=== PATIENT | female | born 1935 | race Caucasian/White ===

== ENCOUNTER 2018-05-04 10:26 | Inpatient (IN) ==
[2018-05-04] MEDS ORDERED: IOPAMIDOL 100 ML BOTTLE IV ONE (10:27)
[2018-05-04] MEDS ORDERED: LACTATED RINGERS 1,000 ML IV ONE ×2 (10:34→16:58)
[2018-05-04] MEDS ORDERED: 0.9 % SODIUM CHLORIDE 1,000 ML IV ONE ×2 (10:39→10:40)
[2018-05-04] MEDS ORDERED: ACETAMINOPHEN 1,000 MG/100 ML BOTTLE IV ONE (10:43)
--- NOTE | 2018-05-04 11:08 | XRay Report ---
CLINICAL INFORMATION: FEVER COMPARISON: 09/19/2016 FINDINGS: The heart is accentuated by suboptimal inspiratory result, portable technique and reversed lordotic positioning. It is within normal limits. Mediastinum and pulmonary vessels are normal. Lungs are clear. No effusion IMPRESSION: Negative Interpreted and Authenticated by: Christopher Adame 05/04/18
[2018-05-04 11:14] LABS: Basophils # (Auto) 0.1 K/mcL (0.0-0.3); Basophils % (Auto) 0.4 % (0.0-2.0); Eosinophils # (Auto) 0.1 K/mcL (0.0-0.7); Eosinophils % (Auto) 0.9 % (0.0-7.0); Granulocytes % (Auto) 81.7 % (38.0-78.0); Lymphocytes # (Auto) 1.5 K/mcL (1.5-4.8); Lymphocytes % (Auto) 11.7 % (15.5-49.0); Mean Cell Volume 100.2 fL (80.0-100.0); Mean Corpuscular HGB Conc 32.9 g/dL (31.0-36.0); Mean Corpuscular Hemoglobin 32.9 pg (26.0-34.0); Monocytes # (Auto) 0.7 K/mcL (0.1-0.9); Monocytes % (Auto) 5.3 % (1.0-12.0); Platelet Count 254 K/mcL (140-440); RBC 4.12 M/mcL (4.00-5.20); Red Cell Distribution Width 14.9 % (11.5-14.5)
[2018-05-04 11:33] LABS: ALT/SGPT 17 U/l (0-40); Albumin 3.7 gm/dL (3.2-5.2); Albumin/Globulin Ratio 1.3 (1.0-2.3); Alkaline Phosphatase 103 U/L (39-117); Blood Urea Nitrogen 17 mg/dl (8-23)
[2018-05-04] MEDS ORDERED: AZITHROMYCIN 500 MG in DEXTROSE 5% IN WATER 250 ML IV ONE (11:42)
--- NOTE | 2018-05-04 11:53 | Emergency Department Note ---
Fever HPI - General Chief Complaint: Fever Stated Complaint: Fever 104 Time Seen by Provider: 05/04/18 10:33 Source: EMS Mode of arrival: EMS Limitations: no limitations - History of Present Illness HPI Narrative: 82-year-old female presents with week long history of cold symptoms. She has had a cough with green sputum for the last week. Fevers of 102-103 at home the last few days. Has had chills all week. Does have some mild shortness of breath but states that is chronic due to COPD and asthma. She does have a nebulizer machine that she uses with some relief. She is not on any home oxygen. No cough or sore throat. No ear pain. No sinus congestion. She does feel generally weak. Denies abdominal pain. No dysuria or frequency. Family reports they called EMS this morning because she has been confused since she woke up this morning and the confusion started just today. They also noticed her high fever this morning. Patient does respond to yes/no questions but does not say a whole lot and is a poor historian with some obvious confusion. Associated symptoms: Reports: chills, myalgias, cough, shortness of breath, night sweats. Denies: headache, rhinorrhea, nasal congestion, sore throat, chest pain, abdominal pain, nausea, vomiting, diarrhea, dysuria, rash Improves with: nothing Worsens with: nothing Treatments prior to arrival fever: none - Related Data Home Medications Medication Instructions Recorded Confirmed Budesonide/Formoterol Fumarate 2 puff IH BID 05/04/18 05/04/18 [Symbicort 160-4.5 Mcg Inhaler] Fluticasone Hfa 220Mcg [Flovent 2 puff INH BID 05/04/18 05/04/18 Hfa 220Mcg] Furosemide [Lasix] 20 mg PO DAILY 05/04/18 05/04/18 Levothyroxine Sodium [Levoxyl] 50 mcg PO DAILY 05/04/18 05/04/18 Metoprolol Tartrate [Lopressor] 25 mg PO BID 05/04/18 05/04/18 Montelukast Sodium [Singulair] 10 mg PO DAILY 05/04/18 05/04/18 Phenytoin [Dilantin] 150 mg CHEWED BID 05/04/18 05/04/18 predniSONE [Prednisone] 10 mg PO [facility] 05/04/18 05/04/18 Allergies Allergy/AdvReac Type Severity Reaction Status Date / Time Penicillins Allergy Severe Unknown Verified 03/12/18 09:00 aspirin Allergy Unknown Nausea, Verified 03/12/18 09:00 vomiting baclofen Allergy Unknown Unknown Verified 03/12/18 09:00 Cyclobenzaprine Allergy Unknown Unknown Verified 03/12/18 09:00 moxifloxacin Allergy Unknown Pain in Verified 03/12/18 09:00 arm and chest Nitrous Oxide Allergy Unknown Unknown Verified 03/12/18 09:00 Review of Systems All systems ED: reviewed and negative except as stated. Fever PMH - Past Medical History [facility] Narrative: Medical History (Last Updated 08/22/17 @ 10:33 by Sin Deleon PA-C) Paroxysmal atrial flutter (Chronic) Seizure disorder (Chronic) Hepatic disease (Chronic) Tremor (Chronic) Unspecified hypothyroidism (Chronic) Seizure (Chronic) Osteopenia (Chronic) Generalized muscle weakness (Inactive) Prolapsed bladder (Chronic) Chronic left hip pain (Chronic) History of tobacco use (Chronic) Vitamin B 12 deficiency (Chronic) Urinary incontinence (Inactive) Restless leg syndrome (Chronic) Peripheral neuropathy (Chronic) Osteoarthritis (Chronic) Kidney cyst, acquired (Chronic) Elevated blood pressure reading without diagnosis of hypertension (Chronic) Edema (Chronic) 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) Chronic pain (Inactive) Chronic kidney disease, stage III (moderate) (Chronic) Hypothyroidism (acquired) (Chronic) Osteoporosis (Chronic) Insomnia (Chronic) Asthma (Chronic) Anxiety (Inactive) Compression fracture (Resolved) Congestive heart failure (Acute) Atrial flutter (Resolved) Cellulitis (Resolved) Lipoma (Resolved) Malaise and fatigue (Resolved) Nocturia (Resolved) Other symptoms involving urinary system (Resolved) Productive cough (Resolved) Rib injury (Resolved) Sunstroke (Resolved) Sweating (Resolved) Visual disturbances (Resolved) Past Surgical History H/O colonoscopy (Chronic ~02/2004) History of cataract surgery (Chronic) History of cholecystectomy (Chronic) History of nasal surgery (Chronic) History of sinus surgery (Chronic) History of thumb surgery (Chronic) History of tonsillectomy and adenoidectomy (Chronic) History of tubal ligation (Chronic) Medical history: Reports: arthritis, asthma, atrial fibrillation (and flutter), CHF, osteoporosis, seizures (denies seizure precip fall "I was reaching for my duncan ins and fell on my couch, it has a wooden edge), thyroid disease - Social History smoking status: Former smoker Alcohol use: Reports: None Drug use: Reports: none Physical Exam Limitations: no limitations General appearance: alert (Alert but very poor historian with confusion at times.) Head: atraumatic, normocephalic, normal inspection Eye: Present: normal appearance. Absent: conjunctival injection ENT: normal exam, normal oropharynx, mucous membranes moist, TM's normal bilaterally, normal external ear exam Neck: Present: normal inspection, full ROM, trachea midline. Absent: tenderness Chest: Present: normal inspection, symmetric chest wall rise Respiratory: Present: normal lung sounds bilaterally. Absent: respiratory distress, rales/crackles, accessory muscle use Cardiovascular: Present: tachycardia, normal heart sounds Abdominal: Present: soft, normal bowel sounds. Absent: distention, tenderness, guarding Extremities: Present: normal inspection. Absent: pedal edema Neurological: Present: alert. Absent: oriented X3 (Oriented to person but not place or time) Psychiatric: Present: normal affect, normal mood Skin: Present: warm (Hot), dry, intact, normal color Course Course Narrative: At 1150 I did speak with the hospitalist. 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 Result diagrams: 05/04/18 10:43 05/04/18 10:43 Lab Results 05/04/18 05/04/18 05/04/18 Range/Units 10:43 10:43 10:43 WBC 12.8 H (4.5-11.0) K/mcL RBC 4.12 (4.00-5.20) M/mcL Hgb 13.6 (12.0-15.0) g/dL Hct 41.3 (36.0-48.0) % MCV 100.2 H (80.0-100.0) fL MCH 32.9 (26.0-34.0) pg MCHC 32.9 (31.0-36.0) g/dL RDW 14.9 H (11.5-14.5) % Plt Count 254 (140-440) K/mcL MPV 9.1 (7.4-10.4) fL Gran % 81.7 H (38.0-78.0) % Lymph % (Auto) 11.7 L (15.5-49.0) % Bow[place] % (Auto) 5.3 (1.0-12.0) % Eos % (Auto) 0.9 (0.0-7.0) % Baso % (Auto) 0.4 (0.0-2.0) % Gran # 10.5 H (1.8-8.0) K/mcL Lymph # (Auto) 1.5 (1.5-4.8) K/mcL Bowman # (Auto) 0.7 (0.1-0.9) K/mcL Eos # (Auto) 0.1 (0.0-0.7) K/mcL Baso # (Auto) 0.1 (0.0-0.3) K/mcL VBG Lactic Acid 1.7 (0.5-2.2) mmol/L Sodium 142 (133-145) mmol/L Potassium 4.4 (3.3-5.1) mmol/L Chloride 104 (96-108) mmol/L Carbon Dioxide 25 (22-30) mmol/L Anion Gap 13.0 (8-16) BUN 17 (8-23) mg/dl Creatinine 1.0 (0.6-1.1) mg/dl GFR Calculation 53 Glucose 151 H (70-105) mg/dL Calcium 8.7 (8.6-10.4) mg/dl Total Bilirubin 0.4 (0.0-1.0) mg/dL AST 29 (0-37) U/l ALT 17 (0-40) U/l Alkaline Phosphatase 103 (39-117) U/L Total Protein 6.5 (5.9-8.4) gm/dL Albumin 3.7 (3.2-5.2) gm/dL Globulin 2.8 (2.2-3.7) gm/dL Albumin/Globulin Ratio 1.3 (1.0-2.3) Procalcitonin (<0.10) ng/mL Urine Color Urine Appearance Urine pH (5.0-9.0) Ur Specific [place] (1.000-1.035) Urine Protein (NEG) mg/dL Urine Glucose (UA) (NEG) mg/dL Urine Ketones (NEG) mg/dL Urine Occult Blood (<0.03) mg/dL Urine Nitrate (NEG) Urine Bilirubin (NEG) mg/dL Urine Urobilinogen (NEG) mg/dL Ur Leukocyte Esterase (NEG) /uL Ur Culture Indicated? Phenytoin ug/mL Phenytoin Dose Pheny Last Dose Time 05/04/18 05/04/18 05/04/18 Range/Units 10:43 10:43 11:00 WBC (4.5-11.0) K/mcL RBC (4.00-5.20) M/mcL Hgb (12.0-15.0) g/dL Hct (36.0-48.0) % MCV (80.0-100.0) fL MCH (26.0-34.0) pg MCHC (31.0-36.0) g/dL RDW (11.5-14.5) % Plt Count (140-440) K/mcL MPV (7.4-10.4) fL Gran % (38.0-78.0) % Lymph % (Auto) (15.5-49.0) % Bowman % (Auto) (1.0-12.0) % Eos % (Auto) (0.0-7.0) % Baso % (Auto) (0.0-2.0) % Gran # (1.8-8.0) K/mcL Lymph # (Auto) (1.5-4.8) K/mcL Bowman # (Auto) (0.1-0.9) K/mcL Eos # (Auto) (0.0-0.7) K/mcL Baso # (Auto) (0.0-0.3) K/mcL VBG Lactic Acid (0.5-2.2) mmol/L Sodium (133-145) mmol/L Potassium (3.3-5.1) mmol/L Chloride (96-108) mmol/L Carbon Dioxide (22-30) mmol/L Anion Gap (8-16) BUN (8-23) mg/dl Creatinine (0.6-1.1) mg/dl GFR Calculation Glucose (70-105) mg/dL Calcium (8.6-10.4) mg/dl Total Bilirubin (0.0-1.0) mg/dL AST (0-37) U/l ALT (0-40) U/l Alkaline Phosphatase (39-117) U/L Total Protein (5.9-8.4) gm/dL Albumin (3.2-5.2) gm/dL Globulin (2.2-3.7) gm/dL Albumin/Globulin Ratio (1.0-2.3) Procalcitonin 0.57 (<0.10) ng/mL Urine Color Yellow Urine Appearance Clear Urine pH 8.0 (5.0-9.0) Ur Specific [place] 1.015 (1.000-1.035) Urine Protein Neg (NEG) mg/dL Urine Glucose (UA) Negative (NEG) mg/dL Urine Ketones Neg (NEG) mg/dL Urine Occult Blood Neg (<0.03) mg/dL Urine Nitrate Neg (NEG) Urine Bilirubin Neg (NEG) mg/dL Urine Urobilinogen Neg (NEG) mg/dL Ur Leukocyte Esterase Neg (NEG) /uL Ur Culture Indicated? No Phenytoin 12.7 ug/mL Phenytoin Dose Not Reportable Pheny Last Dose Time Not Reportable - Radiology Data Radiology results reviewed: Yes I reviewed the patient's radiology results. Disposition Pt seen by SHEEP CLIPPER/PA only: No Clinical Impression: Pneumonia, Hypoxia, Fever Disposition: Xfer As Inpt ([facility]) Condition: Fair Referrals: Sin Deleon PA-C [Primary Care Provider] - Time of Disposition: 14:02
[2018-05-04 12:11] LABS: Appearance,Urine CLEAR; Bilirubin,Urine NEG (NEG); Color,Urine YELLOW; Glucose,Urine (UA) NEGATIVE (NEG); Leukocyte Esterase,Urine NEG /uL (NEG); Protein,Urine NEG (NEG); Specific Gravity,Urine 1.015 (1.000-1.035); Urine Blood NEG mg/dL (<0.03); Urobilinogen,Urine NEG (NEG)
[2018-05-04] MEDS ORDERED: diphenhydrAMINE 50 MG/ML VIAL IV ONE (12:18)
[2018-05-04] MEDS ORDERED: methylPREDNISolone SOD SUCC 125 MG/2 ML VIAL IV ONE (12:18)
--- NOTE | 2018-05-04 13:54 | Cat Scan Report ---
CLINICAL INFORMATION: Fever hypoxia and confusion COMPARISON: Chest CT 03/16/[address] 07/24/2007 TECHNIQUE: Enteric contrast was utilized. 80 cc of Isovue-300 were injected intravenously, and 50 seconds later 2.5 mm helical slices were obtained from the lung apices through the subtrochanteric regions of the femurs. Following reconstruction, 2.5 mm sagittal, coronal and axial reformatted images were processed and reviewed at multiple windows and levels. 7 mm MIP reconstructions were obtained through the lungs to optimize nodule detection.The exam was performed using radiation dose optimization techniques including, but not limited to, automated exposure control, adjustment of the mA and/or kV according to patient size and use of iterative reconstruction technique. FINDINGS: Pulmonary parenchymal windows show moderate patchy mixed interstitial/alveolar infiltrates in both posterior lower lobes which are new from the previous CT. Lung volumes are elevated and there are chronic bronchitis and scattered bullae in the upper lobes compatible mild centrilobular emphysema. 2.5 L nodule, in the right lung apex (image 23) with surrounding inflammation should represent a small granuloma. There is also a small isolated subsegmental bronchus in the posterior segment right upper lobe which demonstrates wall thickening and dilatation suggesting tubular bronchiectasis. There are no effusions. Mediastinal windows show mild wall thickening of the distal esophagus at the GE junction with mild dilatation of the thoracic esophagus. Heart is mildly enlarged with only minimal plaque seen in the visualized coronary arteries. There are no abnormally enlarged lymph nodes in the mediastinal, hilar or axillary regions. The pulmonary arteries and thoracic aorta are normal in contour and caliber. Thyroid is grossly normal Images through the abdomen show the gallbladder is surgically absent. Intrahepatic and common bile ducts are normal caliber: CBD is 6 mm. The liver, pancreas, both kidneys, adrenal glands, and aorta, including aortic branches, are normal size configuration and attenuation without focal lesion. 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 The stomach, small/large bowel and appendix are unremarkable. Images through the pelvis show normal postmenopausal uterus with tiny calcified subserosal granulomas throughout the uterus. Ovaries are atrophic and not visualized. Bone windows show no abnormality. IMPRESSION: Moderate sized infiltrates in both posterior lower lobes. Aspiration is suspected. Mild wall thickening of the distal esophagus at the GE junction with dilatation of the thoracic esophagus. This would predispose to aspiration - consider esophagram Mild centrilobular emphysema changes. Tiny focus of tubular bronchiectasis within a subsegmental posterior segment right upper lobe noted. Splenectomy changes Multiple small calcified fibroids in the peripheral subserosal uterus 9 cm region of vague increased attenuation central mesentery is unchanged from the remote study. It is likely insignificant may represent fibrosis. In the acute situation, this finding can indicate panniculitis. Interpreted and Authenticated by: Christopher Adame 05/04/18
--- NOTE | 2018-05-04 14:36 | Internal Med History&Physical ---
Addendum entered and electronically signed by Aries Dhaliwal 05/04/18 15:01: A/P 1. Pneumonia- most likely d/t history of COPD, prior pneumonia requiring hospitalization, fever and CT showing bilateral lower lobe infiltrates. Will admit and treat with ABx's and supportive treatments 2. Sepsis- less likely d/t maintained BP and negative lactic acid 3. FUO Original Note: Medical - H&P: HPI Patient information: Note initiated : 05/04/18 at 2:35 pm Service Date, if different from initiated Date: [] Patient: Nidia Lopez a 82 y/o F admitted on for Fever 104. Chief Complaint: [] Chief complaint: Confusion starting this morninr History of present illness: Ms. Lopez is a 82 year old F who presented to the ED with altered mental status and a fever of 104. Pt's states that this morning at around 8AM, patient wasn't responding to questions and was acting like "she was somewhere else". Pt's called their daughter who also said that patient wasn't responding appropriately to questions. She has had a cold and a cough for the last week and was producing green sputum. Pt has a history of COPD and asthma and has previously been to the hospital with pneumonia several years ago. - Constitutional Constitutional: Present: chills (always cold), fever(s), lethargy (was given benadryl before CT scan). Absent: night sweats - EENT Eyes: Present: other (watery eyes). Absent: change in vision Nose, mouth and throat: Present: sore throat. Absent: headache(s) - Cardiovascular Cardiovascular: Absent: chest pain, leg edema, lightheadedness, palpatations - Respiratory Respiratory: Present: cough, change in phlegm color (green), other ("lung pain when bending forward"). Absent: hemoptysis - Gastrointestinal Gastrointestinal: Present: constipation. Absent: diarrhea, nausea, vomiting - Genitourinary Genitourinary: Absent: difficulty urinating, difficulty voiding - Musculoskeletal Musculoskeletal: Present: arthralgias (bilat knee pain), muscle weakness - Integumentary Integumentary: Absent: rash, skin ulcer - Neurological Neurological: Present: confusion. Absent: dizziness, numbness, syncope, tingling Medical - H&P: PMH Medical history: COPD Asthma Hypothyroidism Pneumonia Seizures Surgical history: Cholecystectomy Facial sinus surgery tonsillectomy Medical - H&P: Meds Home Medications Medication Instructions Recorded Confirmed Type Budesonide/Formoterol Fumarate 2 puff IH BID 05/04/18 05/04/18 History [Symbicort 160-4.5 Mcg Inhaler] Fluticasone Hfa 220Mcg [Flovent 2 puff INH BID 05/04/18 05/04/18 History Hfa 220Mcg] Furosemide [Lasix] 20 mg PO DAILY 05/04/18 05/04/18 History Levothyroxine Sodium [Levoxyl] 50 mcg PO DAILY 05/04/18 05/04/18 History Metoprolol Tartrate [Lopressor] 25 mg PO BID 05/04/18 05/04/18 History Montelukast Sodium [Singulair] 10 mg PO DAILY 05/04/18 05/04/18 History Phenytoin [Dilantin] 150 mg CHEWED BID 05/04/18 05/04/18 History predniSONE [Prednisone] 10 mg PO QAC 05/04/18 05/04/18 History Allergies Allergy/AdvReac Type Severity Reaction Status Date / Time Penicillins Allergy Severe Unknown Verified 03/12/18 09:00 aspirin Allergy Unknown Nausea, Verified 03/12/18 09:00 vomiting baclofen Allergy Unknown Unknown Verified 03/12/18 09:00 Cyclobenzaprine Allergy Unknown Unknown Verified 03/12/18 09:00 moxifloxacin Allergy Unknown Pain in Verified 03/12/18 09:00 arm and chest Nitrous Oxide Allergy Unknown Unknown Verified 03/12/18 09:00 Medical - H&P: Exam - Constitutional Vitals: Temp Pulse Resp BP Pulse Ox 100.9 F H 115 H 24 H 112/73 95 05/04/18 13:11 05/04/18 12:45 05/04/18 13:11 05/04/18 13:10 05/04/18 12:45 General appearance: no acute distress - Head Head exam: Present: atraumatic - Eye Eye exam: Present: normal appearance, PERRL - Expanded Eye Exam Eyelids: bilateral: normal inspection - ENT ENT exam: Present: mucous membranes moist - Neck Neck exam: Present: normal inspection. Absent: lymphadenopathy, tenderness - Expanded Neck Exam Neck exam: Absent: carotid bruit - Respiratory Respiratory exam: Present: decreased breath sounds, rhonchi, wheezes. Absent: respiratory distress - Cardiovascular Cardiovascular exam: Present: RRR. Absent: gallop, rubs, systolic murmur - Extremities Exam Extremities exam: Present: normal capillary refill, Foot pink and warm. Absent : pedal edema, tenderness - Skin Skin exam: Present: dry, warm Medical - H&P: Reslt - Labs CBC & Chem 7: 05/04/18 10:43 05/04/18 10:43 Labs: Short CBC 05/04/18 Range/Units 10:43 WBC 12.8 H (4.5-11.0) K/mcL Hgb 13.6 (12.0-15.0) g/dL Hct 41.3 (36.0-48.0) % Plt Count 254 (140-440) K/mcL BMP 05/04/18 10:43 Sodium 142 Potassium 4.4 Chloride 104 Carbon Dioxide 25 BUN 17 Creatinine 1.0 Glucose 151 H Calcium 8.7 Liver Function 05/04/18 Range/Units 10:43 Total Bilirubin 0.4 (0.0-1.0) mg/dL AST 29 (0-37) U/l ALT 17 (0-40) U/l Alkaline Phosphatase 103 (39-117) U/L Albumin 3.7 (3.2-5.2) gm/dL Urine 05/04/18 Range/Units 11:00 Urine Color Yellow Urine Appearance Clear Urine pH 8.0 (5.0-9.0) Ur Specific [place] 1.015 (1.000-1.035) Urine Protein Neg (NEG) mg/dL Urine Glucose (UA) Negative (NEG) mg/dL
--- NOTE | 2018-05-04 15:52 | Internal Med History&Physical ---
Medical - H&P: HPI Patient information: Note initiated : 05/04/18 at 3:44 pm Service Date, if different from initiated Date: [] Patient: Nidia Lopez a 82 y/o F admitted on for Fever 104. Chief Complaint: [] History of present illness: Ms. Lopez is a 82 year old F with h/o copd, presents to the ER brought in by family for not feeling well, confusion x 1 day On my evaluation patient was drowsy had received Benadryl before the CT scan and therefore was unable to provide me with any history. Most of the history taken from the patient's The patient has been sick for the last 1 week with cough chills malaise some shortness of breath, runny nose watery eyes. The patient condition has progressively gotten worse according to her . She has had poor appetite and early satiety. The patient this morning was noticed to be confused, and feeling very cold. The noted that she was not talking coherently and called his daughter who then brought the patient to the emergency room. According to the family the patient had no other complaints. They denied any chest pain, no headache changes in vision based on the history there was no suggestion of photophobia or phonophobia. There was no nausea vomiting no diarrhea or constipation reported. In the emergency room the patient was febrile on presentation with a temperature of 102.9, maximum temperature recorded in the ER is 105. Heart rate has been elevated between 100-115. Blood pressure stable at 134/73, patient was tachypneic with a rate of 28, she was a 97% with 4 L of oxygen. Chest x-ray was interpreted as negative, EKG is sinus rhythm, first-degree heart block, old inferior anterior wall [place] Labs showed elevated WBC count at 12.8, platelets 254, hemoglobin 13.6. UA was negative, lactic acid 1.7, pro calcitonin 0.57, sodium 142 potassium 4.4 bicarbonate 25 creatinine 1.[address] abdomen and pelvis showed bilateral pneumonia, emphysema and a dilated esophagus with thickened distal part. On talking with the family the patient had no difficulty in swallowing, and the patient did not have any cough while eating food. By the time when I evaluated the patient the patient's blood pressure had dropped down and was not 90 systolic. Map more than 65. Patient had received azithromycin in the ER. ROS unobtainable: due to mental status Medical - H&P: [facility] Medical history: Medical History (Last Updated 08/22/17 @ 10:33 by Sin Deleon PA-C) Paroxysmal atrial flutter (Chronic) Seizure disorder (Chronic) Hepatic disease (Chronic) Tremor (Chronic) Unspecified hypothyroidism (Chronic) Seizure (Chronic) Osteopenia (Chronic) Generalized muscle weakness (Inactive) Prolapsed bladder (Chronic) Chronic left hip pain (Chronic) History of tobacco use (Chronic) Vitamin B 12 deficiency (Chronic) Urinary incontinence (Inactive) Restless leg syndrome (Chronic) Peripheral neuropathy (Chronic) Osteoarthritis (Chronic) Kidney cyst, acquired (Chronic) Elevated blood pressure reading without diagnosis of hypertension (Chronic) Edema (Chronic) 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) Chronic pain (Inactive) Chronic kidney disease, stage III (moderate) (Chronic) Hypothyroidism (acquired) (Chronic) Osteoporosis (Chronic) Insomnia (Chronic) Asthma (Chronic) Anxiety (Inactive) Compression fracture (Resolved) Congestive heart failure (Acute) Atrial flutter (Resolved) Cellulitis (Resolved) Lipoma (Resolved) Malaise and fatigue (Resolved) Nocturia (Resolved) Other symptoms involving urinary system (Resolved) Productive cough (Resolved) Rib injury (Resolved) Sunstroke (Resolved) Sweating (Resolved) Visual disturbances (Resolved) Surgical history: Past Surgical History H/O colonoscopy (Chronic ~02/2004) History of cataract surgery (Chronic) History of cholecystectomy (Chronic) History of nasal surgery (Chronic) History of sinus surgery (Chronic) History of thumb surgery (Chronic) History of tonsillectomy and adenoidectomy (Chronic) History of tubal ligation (Chronic) Pertinent family history: Family History Mother Cancer Hypertension, essential Heart attack Migraines Diabetes Father Asthma Pneumonia Sister Diabetes Cancer Daughter Cancer Sister Malignant neoplasm of uterus Other Benign neoplasm of brain Colon cancer Malignant neoplasm of kidney Melanoma Medical - H&P: Meds Home Medications Medication Instructions Recorded Confirmed Type Budesonide/Formoterol Fumarate 2 puff IH BID 05/04/18 05/04/18 History [Symbicort 160-4.5 Mcg Inhaler] Fluticasone Hfa 220Mcg [Flovent 2 puff INH BID 05/04/18 05/04/18 History Hfa 220Mcg] Furosemide [Lasix] 20 mg PO DAILY 05/04/18 05/04/18 History Levothyroxine Sodium [Levoxyl] 50 mcg PO DAILY 05/04/18 05/04/18 History Metoprolol Tartrate [Lopressor] 25 mg PO BID 05/04/18 05/04/18 History Montelukast Sodium [Singulair] 10 mg PO DAILY 05/04/18 05/04/18 History Phenytoin [Dilantin] 150 mg CHEWED BID 05/04/18 05/04/18 History predniSONE [Prednisone] 10 mg PO [facility] 05/04/18 05/04/18 History Allergies Allergy/AdvReac Type Severity Reaction Status Date / Time Penicillins Allergy Severe Unknown Verified 03/12/18 09:00 aspirin Allergy Unknown Nausea, Verified 03/12/18 09:00 vomiting baclofen Allergy Unknown Unknown Verified 03/12/18 09:00 Cyclobenzaprine Allergy Unknown Unknown Verified 03/12/18 09:00 moxifloxacin Allergy Unknown Pain in Verified 03/12/18 09:00 arm and chest Nitrous Oxide Allergy Unknown Unknown Verified 03/12/18 09:00 Medical - H&P: Exam - Constitutional Vitals: Temp Pulse Resp BP Pulse Ox 100.2 F H 80 17 107/70 98 05/04/18 15:32 05/04/18 15:32 05/04/18 15:32 05/04/18 15:30 05/04/18 15:32 General appearance: no acute distress Exam: GENERAL: The patient is a well-developed, well-nourished in no apparent distress. Is drowsy and oriented x1 . VITAL SIGNS: Reviewed and as noted elsewhere. HEENT: Head is normocephalic and atraumatic. Extraocular muscles are intact. Pupils are equal, round, and reactive to light. Nares appeared normal. Mouth appears any without lesions. Mucous membranes are moist. NECK: Normal to inspection, Supple, No lymphadenopathy or thyromegaly. LUNGS: Air entry equal on both sides decreased air entry bilaterally, no wheezing, crackles or rhonchi noted. No accessory muscles of respiration. HEART: Regular tachycardic rate and rhythm normal, S1 and S2 heard, no Gallop, S3 or Rub Noted, No Gross murmur heard. ABDOMEN: Soft, nontender, and nondistended. Positive bowel sounds. No hepatosplenomegaly was noted. EXTREMITIES: No cyanosis, clubbing, rash, lesions or edema. NEUROLOGIC: Cranial nerves II through XII are grossly intact. moving all extremity PSYCHIATRIC: drowsy SKIN: No ulceration or wounds noted, No jaundice, No rash noted. Medical - H&P: Reslt - Labs CBC & Chem 7: 05/04/18 10:43 05/04/18 10:43 Labs: Short CBC 05/04/18 Range/Units 10:43 WBC 12.8 H (4.5-11.0) K/mcL Hgb 13.6 (12.0-15.0) g/dL Hct 41.3 (36.0-48.0) % Plt Count 254 (140-440) K/mcL BMP 05/04/18 10:43 Sodium 142 Potassium 4.4 Chloride 104 Carbon Dioxide 25 BUN 17 Creatinine 1.0 Glucose 151 H Calcium 8.7 Liver Function 05/04/18 Range/Units 10:43 Total Bilirubin 0.4 (0.0-1.0) mg/dL AST 29 (0-37) U/l ALT 17 (0-40) U/l Alkaline Phosphatase 103 (39-117) U/L Albumin 3.7 (3.2-5.2) gm/dL Urine 05/04/18 Range/Units 11:00 Urine Color Yellow Urine Appearance Clear Urine pH 8.0 (5.0-9.0) Ur Specific [place] 1.015 (1.000-1.035) Urine Protein Neg (NEG) mg/dL Urine Glucose (UA) Negative (NEG) mg/dL Medical - H&P: A/P - Narrative A/P Narrative: A/P Pneumonia, Aspiration Influenza? (pt did not get flu vac) COPD Acute hypoxic respiratory failure Sepsis h/o CHF not in exacerbation at this time Paroxysmal atrial flutter Hypothrydoism Seizure disorder Plan Admit to PCU status Monitor resp status, Oxygen to keep NC > 90, if needed will start on bipap. IV fluids, IV ertapenum (allergic to penicillin) to cover for anaerobes check influenza Po azithromycin for atypical coveage continue duonebs, no wheezing, on steroids at baseline, will continue same but increase dose to 40mg daily x 5 days then back to baseline dose. Resume home meds as appropriate hold bp meds DVT hep sq Diet regular Full code. Social History - Social History marital status: occupational status: retired other: Children-10 - Tobacco smoking status: Former smoker - Alcohol alcohol intake frequency: does not drink - Substance use substance use type: does not use
[2018-05-04] MEDS ORDERED: ACETAMINOPHEN 325 MG TABLET PO PRN (16:58)
[2018-05-04] MEDS ORDERED: NALOXONE HCL 0.4 MG/ML VIAL IV PRN (16:58)
[2018-05-04] MEDS ORDERED: ONDANSETRON 4 MG/2 ML VIAL IV PRN (16:58)
[2018-05-04] MEDS: ERTAPENEM 1 GM in 0.9 % SODIUM CHLORIDE 50 ML IV SCH (18:18)
[2018-05-04] MEDS: IPRATROPIUM/ALBUTEROL 3 ML AMPUL.NEB NEB SCH (18:45)
[2018-05-04] MEDS: HEPARIN 5,000 UNIT/ML VIAL SQ SCH (20:28)
[2018-05-04] MEDS: METOPROLOL TARTRATE 25 MG TABLET PO SCH (20:28)
[2018-05-04] MEDS: LACTATED RINGERS 1,000 ML IV SCH (20:29)
[2018-05-04] MEDS: Budesonide/Formoterol Fumarate [Symbicort 160-4.5 MCG] Inhaler INH SCH (21:00)
[2018-05-04] MEDS: PHENYTOIN 50 MG TAB.CHEW CHEWED SCH (21:00)
[2018-05-04] MEDS: 0.9 % SODIUM CHLORIDE 10 ML SYRINGE IV SCH (23:54)
[2018-05-05] MEDS: IPRATROPIUM/ALBUTEROL 3 ML AMPUL.NEB NEB SCH ×4 (02:30→20:31)
[2018-05-05] MEDS: 0.9 % SODIUM CHLORIDE 10 ML SYRINGE IV SCH ×3 (05:23→21:52)
[2018-05-05 06:45] LABS: Basophils # (Auto) 0 K/mcL (0.0-0.3); Basophils % (Auto) 0.2 % (0.0-2.0); Eosinophils # (Auto) 0 K/mcL (0.0-0.7); Eosinophils % (Auto) 0.2 % (0.0-7.0); Granulocytes % (Auto) 64.6 % (38.0-78.0); Lymphocytes # (Auto) 7.2 K/mcL (1.5-4.8); Lymphocytes % (Auto) 27.1 % (15.5-49.0); Mean Cell Volume 101.2 fL (80.0-100.0); Mean Corpuscular HGB Conc 32.6 g/dL (31.0-36.0); Monocytes # (Auto) 2.1 K/mcL (0.1-0.9); Monocytes % (Auto) 7.9 % (1.0-12.0); Platelet Count 244 K/mcL (140-440); RBC 3.59 M/mcL (4.00-5.20); Red Cell Distribution Width 15.2 % (11.5-14.5)
[2018-05-05] MEDS: LACTATED RINGERS 1,000 ML IV SCH ×2 (06:57→10:03)
[2018-05-05 07:00] LABS: ALT/SGPT 13 U/l (0-40); Albumin 2.6 gm/dL (3.2-5.2); Alkaline Phosphatase 73 U/L (39-117); Bilirubin,Direct < 0.2 mg/dL (0.0-0.3); Blood Urea Nitrogen 14 mg/dl (8-23); Gamma Glutamyl Transpeptidase 239 U/L (5-36); Uric Acid 4.5 mg/dL (2.5-8.0)
[2018-05-05] MEDS ORDERED: LEVOTHYROXINE 50 MCG TABLET PO SCH (07:30)
--- NOTE | 2018-05-05 07:55 | Internal Med Progress Note ---
Medical - PN: Subj Patient information: Note initiated : 05/05/18 at 7:50 am Service Date, if different from initiated Date: [] Patient: Nidia Lopez 82 y/o F admitted on 05/04/18 for Fever 104. Chief Complaint: [] Interval history: patient is an 82 y.o. female who presented to the ED yesterday with a history of confusion that started that morning. While in ED, pt has received Benadryl and was unable to provide any information. Pt's states that pt had started acting strange yesterday morning at home. She was not responding to questions and looked like she "was somewhere else". says that pt had been sick for the last week, coughing up green colored sputum and complaining of "lung pain" when bending over. She has also been complaining of being cold all the time. Pt had fever of 104 when arriving at ED with an elevated WBC, but normal lactic acid levels. CXR was read as negative, but CT w/ contrast showed bilateral lower lobe patchy infiltrates that were new compared to her last CT. Diagnosis of pneumonia was made in the ED and pt was admitted. 05/05/18 - Saw pt this morning. She knows where she is, the month and the president. She says that she feels much better, but didn't sleep well last night. Still complains of being cold and is still coughing up some sputum. She still reports some lung pain, but says other than the cough, feeling cold and being tired, she has no complaints. - Constitutional Vitals: Vital Signs Temp Pulse Resp BP Pulse Ox 99.2 F H 82 16 107/61 96 05/05/18 07:03 05/05/18 07:31 05/05/18 07:31 05/05/18 07:00 05/05/18 07:25 Period Temp Pulse Resp BP Sys/Crockett Pulse Ox Last 24 Hr 98.6 F-103.7 F 72-117 12-28 77-147/51-91 87-99 Intake and Output 05/04/18 05/05/18 05/05/18 21:59 05:59 13:59 Output Total 140 / 140 1800 / 1800 310 / 310 Balance -140 / -140 -1800 / -1800 -310 / -310 Weight 182 lb 4.8 oz Intake & Output: Intake & Output 05/04/18 05/05/18 05/05/18 21:59 05:59 13:59 Output Total 140 / 140 1800 / 1800 310 / 310 Balance -140 / -140 -1800 / -1800 -310 / -310 Weight 182 lb 4.8 oz Output: Urine Catheter Amount 140 / 140 1800 / 1800 310 / 310 Other: Meal Breakfast Percent of Meal Consumed 100% Feeding Ability Assist with Tray Set Up Urine Appearance Clear Clear Clear Uretheral (Pagan) Clear Clear Clear Urine Color Bright Yellow Bright Yellow Bright Yellow Uretheral (Pagan) Bright Yellow Bright Yellow Bright Yellow Urine Odor Normal Normal Normal Uretheral (Pagan) Normal Stool Size Large Stool Color Brown Yellow Stool Consistency Formed # Bowel Movements 1 # of times incontinent of 0 Bowels - Expanded Neck Exam Neck exam: Absent: carotid bruit, tenderness - Respiratory Respiratory exam: Present: decreased breath sounds, rhonchi (Both lower lobes) - Cardiovascular Cardiovascular exam: Present: normal rate and rhythm, RRR. Absent: gallop, rubs , systolic murmur - GI/Abdominal GI/Abdominal exam: Present: soft. Absent: guarding, tenderness - Extremities Exam Extremities exam: Present: Foot pink and warm. Absent: pedal edema Medical - PN: Obj Da - Labs CBC & Chem 7: 05/05/18 03:50 05/05/18 03:50 Labs: Abnormal Lab Results 05/05/18 05/05/18 05/04/18 03:50 03:50 10:43 WBC 26.4 H RBC 3.59 L Hgb 11.8 L MCV 101.2 H RDW 15.2 H Gran % Lymph % (Auto) Gran # 17.1 H Lymph # (Auto) 7.2 H [place] # (Auto) 2.1 H Glucose 151 H Calcium 8.2 L Phosphorus 2.2 L GGT 239 H Total Protein 5.2 L Albumin 2.6 L 05/04/18 10:43 WBC 12.8 H RBC Hgb MCV 100.2 H RDW 14.9 H Gran % 81.7 H Lymph % (Auto) 11.7 L Gran # 10.5 H Lymph # (Auto) [place] # (Auto) Glucose Calcium Phosphorus GGT Total Protein Albumin Meds: Medications Acetaminophen (Tylenol) 650 mg PO Q4-6HP PRN PRN Reason: PAIN/FEVER > 101 Albuterol/Ipratropium (Duoneb) 3 ml NEB Q6HRT [facility] Last Admin: 05/05/18 07:24 Dose: 3 ml Azithromycin (Zithromax) 250 mg PO DAILY [facility] Stop: 05/08/18 09:01 Furosemide (Lasix) 20 mg PO DAILY [facility] Heparin Sodium (Porcine) (Heparin) 5,000 unit SQ Q12 [facility] Last Admin: 05/04/18 20:28 Dose: 5,000 unit Ertapenem 1 gm/ Sodium (Chloride) 50 mls @ 100 mls/hr IV DAILY [facility] Last Admin: 05/04/18 18:18 Dose: 100 mls/hr Lactated Ringer's (Lactated Ringers) 1,000 mls @ 75 mls/hr IV .[id number] [facility] Last Admin: 05/05/18 06:57 Dose: Not Given Levothyroxine Sodium (Synthroid) 50 mcg PO ACB [facility] Last Admin: 05/05/18 07:49 Dose: 50 mcg Metoprolol Tartrate (Lopressor) 25 mg PO BID [facility] Last Admin: 05/04/18 20:28 Dose: 25 mg Montelukast Sodium (Singular) 10 mg PO DAILY [facility] Naloxone HCl (Narcan) 0.1 mg IV Q2MIN PRN PRN Reason: Opiate Reversal Ondansetron HCl (Zofran) 4 mg IV Q4-6HP PRN PRN Reason: Nausea And Vomiting Budesonide/Formoterol Fumarate [Symbicort 160-4.5 Mcg] Inhaler 2 dose INH BID [facility] Last Admin: 05/04/18 21:00 Dose: 2 dose Phenytoin (Dilantin) 150 mg CHEWED BID [facility] Last Admin: 05/04/18 21:00 Dose: 150 mg Prednisone (Prednisone) 40 mg PO [facility] Stop: 05/08/18 08:01 Prednisone (Prednisone) 10 mg PO [facility] Sodium Chloride (Saline Flush) 10 ml IV Q8 [facility] Last Admin: 05/05/18 05:23 Dose: 10 ml Medical - PN: A/P - Time Spent With Patient Total time spent is greater than 50% in coordination of care (as documented) at patient's floor/unit and/or counseling patient: 25 - 35 minutes (1) Fever Status: Resolved Assessment and plan: Pt came into ED with fever of 104. Most likely caused by pneumonia. Pt is currently receiving Tylenol and last recorded temp was 99.2. Will continued to manage fever with Tylenol as needed while ABx's run their course. Current Visit: Yes (2) Hypoxia Status: Chronic Assessment and plan: Pt is currently on 2L nasal canula with O2 sats of around 96. Pt says she has history of COPD and asthma. Sats were mostly dropped due to pneumonia exacerbating her chronic conditions. After resolution of pneumonia, will advise pt to return to levels of O2 used at home and to follow up with PCP for future changes in flow. Current Visit: Yes (3) Pneumonia Status: Acute Assessment and plan: Aspiration or CAP pneumonia suspected due to week long illness and coughing and no recent visits to the hospital suggesting HCAP. Sputum culture was contaminated and not reordered. Will consider azithromycin+Augmentin to cover CAP w/ respiratory comorbidities (COPD/Asthma) or atypical plus clindamycin for aspiration. Will consider reordering the sputum culture. Current Visit: Yes (4) Asthma Status: Chronic Assessment and plan: Pt needs to follow up with PCP to insure use of appropriate steroid, LABA combos for her case. Current Visit: No Medical - PN: Qual - Stroke Symptom Onset Unknown: No - VTE Deep Vein Thrombosis/Pulmonary Embolism Present on Admission: No
[2018-05-05] MEDS ORDERED: predniSONE 10 MG TABLET PO SCH (08:00)
[2018-05-05] MEDS ORDERED: FUROSEMIDE 20 MG TABLET PO SCH (09:00)
[2018-05-05] MEDS ORDERED: AZITHROMYCIN 250 MG TABLET PO SCH (09:00)
[2018-05-05] MEDS ORDERED: MONTELUKAST 10 MG TABLET PO SCH (09:00)
[2018-05-05] MEDS: PHENYTOIN 50 MG TAB.CHEW CHEWED SCH ×2 (09:21→21:41)
[2018-05-05] MEDS: METOPROLOL TARTRATE 25 MG TABLET PO SCH ×2 (09:21→21:41)
[2018-05-05] MEDS: ERTAPENEM 1 GM in 0.9 % SODIUM CHLORIDE 50 ML IV SCH (09:21)
[2018-05-05] MEDS: HEPARIN 5,000 UNIT/ML VIAL SQ SCH ×2 (09:21→20:06)
[2018-05-05] MEDS: Budesonide/Formoterol Fumarate [Symbicort 160-4.5 MCG] Inhaler INH SCH (09:22)
[2018-05-05] MEDS ORDERED: ACETAMINOPHEN 325 MG TABLET PO PRN (09:33)
[2018-05-05] MEDS ORDERED: NALOXONE HCL 0.4 MG/ML VIAL IV PRN (09:33)
--- NOTE | 2018-05-05 11:42 | Internal Med Progress Note ---
Medical - PN: Subj Patient information: Note initiated : 05/05/18 at 11:39 am Service Date, if different from initiated Date: [] Patient: Nidia Lopez a 82 y/o F admitted on 05/04/18 for Fever 104/Pneumonia, Sepsis. Chief Complaint: [] Interval history: Ms. Lopez is a 82 year old F with h/o copd, presents to the ER brought in by family for not feeling well, confusion x 1 day On my evaluation patient was drowsy had received Benadryl before the CT scan and therefore was unable to provide me with any history. Most of the history taken from the patient's The patient has been sick for the last 1 week with cough chills malaise some shortness of breath, runny nose watery eyes. The patient condition has progressively gotten worse according to her . She has had poor appetite and early satiety. The patient this morning was noticed to be confused, and feeling very cold. The noted that she was not talking coherently and called his daughter who then brought the patient to the emergency room. According to the family the patient had no other complaints. They denied any chest pain, no headache changes in vision based on the history there was no suggestion of photophobia or phonophobia. There was no nausea vomiting no diarrhea or constipation reported. In the emergency room the patient was febrile on presentation with a temperature of 102.9, maximum temperature recorded in the ER is 105. Heart rate has been elevated between 100-115. Blood pressure stable at 134/73, patient was tachypneic with a rate of 28, she was a 97% with 4 L of oxygen. Chest x-ray was interpreted as negative, EKG is sinus rhythm, first-degree heart block, old inferior anterior wall [place] Labs showed elevated WBC count at 12.8, platelets 254, hemoglobin 13.6. UA was negative, lactic acid 1.7, pro calcitonin 0.57, sodium 142 potassium 4.4 bicarbonate 25 creatinine 1.[address] abdomen and pelvis showed bilateral pneumonia, emphysema and a dilated esophagus with thickened distal part. On talking with the family the patient had no difficulty in swallowing, and the patient did not have any cough while eating food. By the time when I evaluated the patient the patient's blood pressure had dropped down and was not 90 systolic. Map more than 65. Patient had received azithromycin in the ER. 05/05 Patient seen and examined, no acute overnight events. Patient doing well this morning. Mental status much better feels she did not sleep well last night. Cough still present shortness of breath still present. Fever curve is much better. Influenza test is negative. Cultures negative growth so far. Patient is hemodynamically stable for transfer to medical floor. Labs reviewed showed elevated WBC count, patient is on steroids, clinically has shown improvement. Pertinent ROS: Denies headache, dizziness Denies chest pain, palpitations present cough or shortness of breath Denies abdominal pain, nausea or vomiting. - Constitutional Vitals: Vital Signs Temp Pulse Resp BP Pulse Ox 98.9 F 82 19 108/58 97 05/05/18 08:34 05/05/18 07:31 05/05/18 08:34 05/05/18 08:00 05/05/18 08:34 Period Temp Pulse Resp BP Sys/Crockett Pulse Ox Last 24 Hr 98.6 F-101.3 F 72-115 12-28 77-118/51-81 91-99 Intake and Output 05/04/18 05/05/18 05/05/18 21:59 05:59 13:59 Intake Total 50 / 50 240 / 240 Output Total 140 / 140 1800 / 1800 340 / 340 Balance -90 / -90 -1800 / -1800 -100 / -100 Weight 182 lb 4.8 oz Intake & Output: Intake & Output 05/04/18 05/05/18 05/05/18 21:59 05:59 13:59 Intake Total 50 / 50 240 / 240 Output Total 140 / 140 1800 / 1800 340 / 340 Balance -90 / -90 -1800 / -1800 -100 / -100 Weight 182 lb 4.8 oz Intake: IV 50 / 50 INVanz 1 GM In Sodium Chloride 50 / 50 0.9% 50 ml @ 100 mls/hr IV DAILY [facility] Rx#:[id number] Oral 240 / 240 Output: Urine Catheter Amount 140 / 140 1800 / 1800 340 / 340 Other: Meal Breakfast Breakfast Percent of Meal Consumed 100% 75% Feeding Ability Assist with Tray Set Up Assist with Tray Set Up Urine Appearance Clear Clear Clear Uretheral (Pagan) Clear Clear Clear Urine Color Bright Yellow Bright Yellow Bright Yellow Uretheral (Pagan) Bright Yellow Bright Yellow Bright Yellow Urine Odor Normal Normal Normal Uretheral (Paagn) Normal Stool Size Large Stool Color Brown Yellow Stool Consistency Formed # Bowel Movements 1 # of times incontinent of 0 Bowels Exam: Constitutional; Afebrile, cooperative, alert, not in distress. Eyes- No icterus, , No periorbital swelling Ears- Ext ear normal, hearing normal to conversation. Neck- Midline trachea, supple Respiratory system: Air Entry equal on both sides, poor air entry, bilateral basilar crackles. CVS- Rate rhythm regular, S1,S2 heard, no gallop, no rub. Abdomen- Soft nontender abdomen, no organomegaly, no tenderness, no guarding or rigidity, RECORDS ADMINISTRATOR- AOOx3, moving all extremities, no gross focal deficit noted. Medical - PN: Obj Da - Labs CBC & Chem 7: 05/05/18 03:50 05/05/18 03:50 Labs: Abnormal Lab Results 05/05/18 05/05/18 05/04/18 03:50 03:50 10:43 WBC 26.4 H RBC 3.59 L Hgb 11.8 L MCV 101.2 H RDW 15.2 H Gran % Lymph % (Auto) Gran # 17.1 H Lymph # (Auto) 7.2 H [place] # (Auto) 2.1 H Glucose 151 H Calcium 8.2 L Phosphorus 2.2 L GGT 239 H Total Protein 5.2 L Albumin 2.6 L 05/04/18 10:43 WBC 12.8 H RBC Hgb MCV 100.2 H RDW 14.9 H Gran % 81.7 H Lymph % (Auto) 11.7 L Gran # 10.5 H Lymph # (Auto) [place] # (Auto) Glucose Calcium Phosphorus GGT Total Protein Albumin Meds: Medications Acetaminophen (Tylenol) 650 mg PO Q4-6HP PRN PRN Reason: PAIN/FEVER > 101 Albuterol/Ipratropium (Duoneb) 3 ml NEB Q6HRT [facility] Azithromycin (Zithromax) 250 mg PO DAILY [facility] Stop: 05/07/18 09:01 Furosemide (Lasix) 20 mg PO DAILY [facility] Heparin Sodium (Porcine) (Heparin) 5,000 unit SQ Q12 [facility] Ertapenem 1 gm/ Sodium (Chloride) 50 mls @ 100 mls/hr IV Q24H [facility] Lactated Ringer's (Lactated Ringers) 1,000 mls @ 75 mls/hr IV .[id number] [facility] Last Admin: 05/05/18 10:03 Dose: 75 mls/hr Levothyroxine Sodium (Synthroid) 50 mcg PO ACB [facility] Metoprolol Tartrate (Lopressor) 25 mg PO BID [facility] Montelukast Sodium (Singular) 10 mg PO DAILY [facility] Naloxone HCl (Narcan) 0.1 mg IV Q2MIN PRN PRN Reason: Opiate Reversal Ondansetron HCl (Zofran) 4 mg IV Q4-6HP PRN PRN Reason: Nausea And Vomiting Budesonide/Formoterol Fumarate [Symbicort] 160-4.5 Mcg Inhaler 2 dose INH BID [facility] Phenytoin (Dilantin) 150 mg CHEWED BID [facility] Prednisone (Prednisone) 40 mg PO [facility] Stop: 05/08/18 08:01 Prednisone (Prednisone) 10 mg PO [facility] Sodium Chloride (Saline Flush) 10 ml IV Q8 [facility] Medical - PN: A/P - Time Spent With Patient Total time spent is greater than 50% in coordination of care (as documented) at patient's floor/unit and/or counseling patient: - Narrative A/P Narrative: A/P Pneumonia, Aspiration Influenza? (pt did not get flu vac) COPD Acute hypoxic respiratory failure Sepsis h/o CHF not in exacerbation at this time Paroxysmal atrial flutter Hypothrydoism Seizure disorder Plan transfer to med surg. Oxygen to keep NC > 90, clinically improving Microbiolgoy neg so far. flu test neg IV fluids, IV ertapenum (allergic to penicillin) to cover for anaerobes Po azithromycin for atypical coverage continue duonebs, no wheezing, on steroids at baseline, will continue same but increase dose to 40mg daily x 5 days then back to baseline dose. Resume home meds as appropriate hold bp meds for now , DVT hep sq Diet regular Full code. Medical - PN: Qual - Stroke Symptom Onset Unknown: No - VTE Deep Vein Thrombosis/Pulmonary Embolism Present on Admission: No
--- NOTE | 2018-05-05 15:57 | Internal Med Progress Note ---
Medical - PN: Subj Patient information: Note initiated : 05/05/18 at 3:53 pm Service Date, if different from initiated Date: [] Patient: Nidia Lopez a 82 y/o F admitted on 05/04/18 for Fever 104/Pneumonia, Sepsis. Chief Complaint: [] Interval history: Ms. Lopez is a 82 year old F with h/o copd, presents to the ER brought in by family for not feeling well, confusion x 1 day On my evaluation patient was drowsy had received Benadryl before the CT scan and therefore was unable to provide me with any history. Most of the history taken from the patient's The patient has been sick for the last 1 week with cough chills malaise some shortness of breath, runny nose watery eyes. The patient condition has progressively gotten worse according to her . She has had poor appetite and early satiety. The patient this morning was noticed to be confused, and feeling very cold. The noted that she was not talking coherently and called his daughter who then brought the patient to the emergency room. According to the family the patient had no other complaints. They denied any chest pain, no headache changes in vision based on the history there was no suggestion of photophobia or phonophobia. There was no nausea vomiting no diarrhea or constipation reported. In the emergency room the patient was febrile on presentation with a temperature of 102.9, maximum temperature recorded in the ER is 105. Heart rate has been elevated between 100-115. Blood pressure stable at 134/73, patient was tachypneic with a rate of 28, she was a 97% with 4 L of oxygen. Chest x-ray was interpreted as negative, EKG is sinus rhythm, first-degree heart block, old inferior anterior wall [place] Labs showed elevated WBC count at 12.8, platelets 254, hemoglobin 13.6. UA was negative, lactic acid 1.7, pro calcitonin 0.57, sodium 142 potassium 4.4 bicarbonate 25 creatinine 1.[address] abdomen and pelvis showed bilateral pneumonia, emphysema and a dilated esophagus with thickened distal part. On talking with the family the patient had no difficulty in swallowing, and the patient did not have any cough while eating food. By the time when I evaluated the patient the patient's blood pressure had dropped down and was not 90 systolic. Map more than 65. Patient had received azithromycin in the ER. 05/05 Patient seen and examined, no acute overnight events. Patient doing well this morning. Mental status much better feels she did not sleep well last night. Cough still present shortness of breath still present. Fever curve is much better. Influenza test is negative. Cultures negative growth so far. Patient is hemodynamically stable for transfer to medical floor. Labs reviewed showed elevated WBC count, patient is on steroids, clinically has shown improvement. 05/06 - Constitutional Vitals: Vital Signs Temp Pulse Resp BP Pulse Ox 98.7 F 87 16 102/62 96 05/05/18 11:59 05/05/18 13:25 05/05/18 13:25 05/05/18 11:59 05/05/18 12:00 Period Temp Pulse Resp BP Sys/Crockett Pulse Ox Last 24 Hr 98.6 F-100.2 F 72-107 12-28 93-114/51-71 91-99 Intake and Output 05/05/18 05/05/18 05/05/18 05:59 13:59 21:59 Intake Total 390 / 390 Output Total 1800 / 1800 840 / 840 Balance -1800 / -1800 -450 / -450 Weight 82.69 kg Patient Weight 05/06/18 05:59 Weight 82.69 kg Intake & Output: Intake & Output 05/05/18 05/05/18 05/05/18 05:59 13:59 21:59 Intake Total 390 / 390 Output Total 1800 / 1800 840 / 840 Balance -1800 / -1800 -450 / -450 Weight 82.69 kg Intake: Oral 390 / 390 Output: Urine Catheter Amount 1800 / 1800 840 / 840 Other: Meal Breakfast Percent of Meal Consumed 75% Feeding Ability Assist with Tray Set Up Urine Appearance Clear Clear Uretheral (Pagan) Clear Clear Urine Color Bright Yellow Bright Yellow Uretheral (Pagan) Bright Yellow Bright Yellow Urine Odor Normal Normal Uretheral (Pagan) Normal Exam: General: Alert, Awake, No acute Distress HEENT: EOMI, CV: RRR, No murmurs, normal s1/s2 Pulm: Clear b/l, no wheezing/rhonchi/rales Abd: soft, nontender, +BS x4 Ext: no clubbing/cyanosis/edema Neuro: Alert, no focal deficits, moves all extremities Skin: warm/dry Medical - PN: Obj Da - Labs CBC & Chem 7: 05/05/18 03:50 05/05/18 03:50 Labs: Abnormal Lab Results 05/05/18 05/05/18 05/04/18 03:50 03:50 10:43 WBC 26.4 H RBC 3.59 L Hgb 11.8 L MCV 101.2 H RDW 15.2 H Gran % Lymph % (Auto) Gran # 17.1 H Lymph # (Auto) 7.2 H [place] # (Auto) 2.1 H Glucose 151 H Calcium 8.2 L Phosphorus 2.2 L GGT 239 H Total Protein 5.2 L Albumin 2.6 L 05/04/18 10:43 WBC 12.8 H RBC Hgb MCV 100.2 H RDW 14.9 H Gran % 81.7 H Lymph % (Auto) 11.7 L Gran # 10.5 H Lymph # (Auto) [place] # (Auto) Glucose Calcium Phosphorus GGT Total Protein Albumin Meds: Medications Acetaminophen (Tylenol) 650 mg PO Q4-6HP PRN PRN Reason: PAIN/FEVER > 101 Albuterol/Ipratropium (Duoneb) 3 ml NEB Q6HRT [facility] Last Admin: 05/05/18 13:19 Dose: 3 ml Azithromycin (Zithromax) 250 mg PO DAILY [facility] Stop: 05/07/18 09:01 Furosemide (Lasix) 20 mg PO DAILY [facility] Heparin Sodium (Porcine) (Heparin) 5,000 unit SQ Q12 [facility] Ertapenem 1 gm/ Sodium (Chloride) 50 mls @ 100 mls/hr IV Q24H [facility] Lactated Ringer's (Lactated Ringers) 1,000 mls @ 75 mls/hr IV .[id number] [facility] Last Admin: 05/05/18 10:03 Dose: 75 mls/hr Levothyroxine Sodium (Synthroid) 50 mcg PO ACB [facility] Metoprolol Tartrate (Lopressor) 25 mg PO BID [facility] Montelukast Sodium (Singular) 10 mg PO DAILY [facility] Naloxone HCl (Narcan) 0.1 mg IV Q2MIN PRN PRN Reason: Opiate Reversal Ondansetron HCl (Zofran) 4 mg IV Q4-6HP PRN PRN Reason: Nausea And Vomiting Budesonide/Formoterol Fumarate [Symbicort] 160-4.5 Mcg Inhaler 2 dose INH BID [facility] Phenytoin (Dilantin) 150 mg CHEWED BID [facility] Prednisone (Prednisone) 40 mg PO [facility] Stop: 05/08/18 08:01 Prednisone (Prednisone) 10 mg PO [facility] Sodium Chloride (Saline Flush) 10 ml IV Q8 [facility] Last Admin: 05/05/18 13:59 Dose: 10 ml Medical - PN: A/P - Time Spent With Patient Total time spent is greater than 50% in coordination of care (as documented) at patient's floor/unit and/or counseling patient: - Narrative A/P Narrative: A: *Pneumonia, Aspiration: -Influenza? (pt did not get flu vac) *COPD *Acute hypoxic respiratory failure *Sepsis *h/o CHF not in exacerbation at this time *Paroxysmal atrial flutter *Hypothrydoism *Seizure disorder Plan: -Oxygen to keep NC > 90, clinically improving -Microbiology neg so far. flu test neg -IV fluids, IV ertapenum (allergic to penicillin) to cover for anaerobes -Po azithromycin for atypical coverage -continue duonebs, no wheezing, on steroids at baseline, will continue same but increase dose to 40mg daily x 5 days then back to baseline dose. -Resume home meds as appropriate -hold bp meds for now -PT/OT -ppx: hep sq Full code. Medical - PN: Qual - Stroke Symptom Onset Unknown: No - VTE Deep Vein Thrombosis/Pulmonary Embolism Present on Admission: No
[2018-05-05] MEDS: ONDANSETRON 4 MG/2 ML VIAL IV PRN (19:04)
[2018-05-05] MEDS: Budesonide/Formoterol Fumarate [Symbicort] 160-4.5 mcg Inhaler INH SCH (23:30)
[2018-05-06] MEDS: LACTATED RINGERS 1,000 ML IV SCH (01:28)
[2018-05-06] MEDS: IPRATROPIUM/ALBUTEROL 3 ML AMPUL.NEB NEB SCH ×4 (01:31→20:03)
[2018-05-06 05:44] LABS: Mean Cell Volume 101.1 fL (80.0-100.0); Mean Corpuscular HGB Conc 32.7 g/dL (31.0-36.0); Mean Corpuscular Hemoglobin 33.1 pg (26.0-34.0); Platelet Count 256 K/mcL (140-440); Red Cell Distribution Width 15.3 % (11.5-14.5)
[2018-05-06 05:56] LABS: ALT/SGPT 11 U/l (0-40); Albumin 2.8 gm/dL (3.2-5.2); Albumin/Globulin Ratio 1.1 (1.0-2.3); Alkaline Phosphatase 68 U/L (39-117); Bilirubin,Direct < 0.2 mg/dL (0.0-0.3); Blood Urea Nitrogen 14 mg/dl (8-23); Gamma Glutamyl Transpeptidase 211 U/L (5-36); Uric Acid 4.6 mg/dL (2.5-8.0)
[2018-05-06] MEDS: 0.9 % SODIUM CHLORIDE 10 ML SYRINGE IV SCH ×3 (06:08→20:57)
[2018-05-06 06:45] LABS: Lymphocytes % 26 % (15-49); Macrocytosis 1+ (NONE SEEN); Monocytes % (Manual) 4 % (1-12); Platelet Estimate NORMAL (NORMAL); RBC Morphology ABNORM (NORMAL); Segmented Neutrophils % 70 % (38-78)
[2018-05-06] MEDS: predniSONE 10 MG TABLET PO SCH (07:38)
[2018-05-06] MEDS: LEVOTHYROXINE 50 MCG TABLET PO SCH (07:39)
--- NOTE | 2018-05-06 08:11 | Internal Med Progress Note ---
Medical - PN: Subj Patient information: Note initiated : 05/06/18 at 8:08 am Service Date, if different from initiated Date: [] Patient: Nidia Lopez a 82 y/o F admitted on 05/04/18 for Fever 104/Pneumonia, Sepsis. Chief Complaint: [] Interval history: Ms. Lopez is a 82 year old F with h/o copd, presents to the ER brought in by family for not feeling well, confusion x 1 day On my evaluation patient was drowsy had received Benadryl before the CT scan and therefore was unable to provide me with any history. Most of the history taken from the patient's The patient has been sick for the last 1 week with cough chills malaise some shortness of breath, runny nose watery eyes. The patient condition has progressively gotten worse according to her . She has had poor appetite and early satiety. The patient this morning was noticed to be confused, and feeling very cold. The noted that she was not talking coherently and called his daughter who then brought the patient to the emergency room. According to the family the patient had no other complaints. They denied any chest pain, no headache changes in vision based on the history there was no suggestion of photophobia or phonophobia. There was no nausea vomiting no diarrhea or constipation reported. In the emergency room the patient was febrile on presentation with a temperature of 102.9, maximum temperature recorded in the ER is 105. Heart rate has been elevated between 100-115. Blood pressure stable at 134/73, patient was tachypneic with a rate of 28, she was a 97% with 4 L of oxygen. Chest x-ray was interpreted as negative, EKG is sinus rhythm, first-degree heart block, old inferior anterior wall [place] Labs showed elevated WBC count at 12.8, platelets 254, hemoglobin 13.6. UA was negative, lactic acid 1.7, pro calcitonin 0.57, sodium 142 potassium 4.4 bicarbonate 25 creatinine 1.[address] abdomen and pelvis showed bilateral pneumonia, emphysema and a dilated esophagus with thickened distal part. On talking with the family the patient had no difficulty in swallowing, and the patient did not have any cough while eating food. By the time when I evaluated the patient the patient's blood pressure had dropped down and was not 90 systolic. Map more than 65. Patient had received azithromycin in the ER. 05/05 Patient seen and examined, no acute overnight events. Patient doing well this morning. Mental status much better feels she did not sleep well last night. Cough still present shortness of breath still present. Fever curve is much better. Influenza test is negative. Cultures negative growth so far. Patient is hemodynamically stable for transfer to medical floor. Labs reviewed showed elevated WBC count, patient is on steroids, clinically has shown improvement. 05/06 No overnight events other than stating poor sleep from interruptions. Mild productive cough of yellow white sputum which is improved. Denies shortness of breath. Review of Systems: denies headache/fever/chills/nausea/vomiting/chest or abdominal pain/dyspnea/ diarrhea. Otherwise see above. - Constitutional Vitals: Vital Signs Temp Pulse Resp BP Pulse Ox 99.2 F H 102 H 16 126/68 94 05/06/18 07:23 05/06/18 03:52 05/06/18 07:23 05/06/18 07:23 05/06/18 07:23 Period Temp Pulse Resp BP Sys/Crockett Pulse Ox Last 24 Hr 97.9 F-99.2 F 81-102 16-19 101-126/59-74 92-97 Intake and Output 05/05/18 05/06/18 05/06/18 21:59 05:59 13:59 Intake Total 1100 / 1100 Output Total 425 / 425 350 / 350 Balance -425 / -425 750 / 750 Weight 80.966 kg Intake & Output: Intake & Output 05/05/18 05/06/18 05/06/18 21:59 05:59 13:59 Intake Total 1100 / 1100 Output Total 425 / 425 350 / 350 Balance -425 / -425 750 / 750 Weight 80.966 kg Intake: IV 1000 / 1000 Lactated Ringers 1,000 ml @ 75 1000 / 1000 mls/hr IV .[id number] [facility] Rx#: [id number] Oral 100 / 100 Output: Urine Catheter Amount 350 / 350 350 / 350 Emesis 75 / 75 Other: Urine Appearance Clear Urine Color Bright Yellow Bright Yellow Uretheral (Pagan) Bright Yellow Urine Odor Normal Normal Exam: General: Alert, Awake, No acute Distress HEENT: EOMI, CV: RRR, No murmurs, Pulm: b/l rhonchi mild, no wheezing Abd: soft, nontender, +BS x4 Ext: no clubbing/cyanosis/edema Neuro: Alert, no focal deficits, moves all extremities Skin: warm/dry Medical - PN: Obj Da - Labs CBC & Chem 7: 05/06/18 04:32 05/06/18 04:32 Labs: Abnormal Lab Results 05/06/18 05/06/18 05/05/18 04:32 04:32 03:50 WBC 16.8 H RBC 3.50 L Hgb 11.6 L Hct 35.3 L MCV 101.1 H RDW 15.3 H Gran % Lymph % (Auto) Gran # Lymph # (Auto) [place] # (Auto) RBC Morphology Abnorm A Macrocytosis 1+ A Glucose 122 H Calcium 8.2 L Phosphorus 2.5 L 2.2 L GGT 211 H 239 H Total Protein 5.3 L 5.2 L Albumin 2.8 L 2.6 L 05/05/18 05/04/18 05/04/18 03:50 10:43 10:43 WBC 26.4 H 12.8 H RBC 3.59 L Hgb 11.8 L Hct MCV 101.2 H 100.2 H RDW 15.2 H 14.9 H Gran % 81.7 H Lymph % (Auto) 11.7 L Gran # 17.1 H 10.5 H Lymph # (Auto) 7.2 H [place] # (Auto) 2.1 H RBC Morphology Macrocytosis Glucose 151 H Calcium Phosphorus GGT Total Protein Albumin Meds: Medications Acetaminophen (Tylenol) 650 mg PO Q4-6HP PRN PRN Reason: PAIN/FEVER > 101 Albuterol/Ipratropium (Duoneb) 3 ml NEB Q6HRT [facility] Last Admin: 05/06/18 06:59 Dose: 3 ml Azithromycin (Zithromax) 250 mg PO DAILY [facility] Stop: 05/07/18 09:01 Furosemide (Lasix) 20 mg PO DAILY [facility] Heparin Sodium (Porcine) (Heparin) 5,000 unit SQ Q12 [facility] Last Admin: 05/05/18 20:06 Dose: 5,000 unit Ertapenem 1 gm/ Sodium (Chloride) 50 mls @ 100 mls/hr IV Q24H [facility] Lactated Ringer's (Lactated Ringers) 1,000 mls @ 75 mls/hr IV .[id number] [facility] Last Admin: 05/06/18 01:28 Dose: 75 mls/hr Levothyroxine Sodium (Synthroid) 50 mcg PO ACB [facility] Last Admin: 05/06/18 07:39 Dose: 50 mcg Metoprolol Tartrate (Lopressor) 25 mg PO BID [facility] Last Admin: 05/05/18 21:41 Dose: 25 mg Montelukast Sodium (Singular) 10 mg PO DAILY [facility] Naloxone HCl (Narcan) 0.1 mg IV Q2MIN PRN PRN Reason: Opiate Reversal Ondansetron HCl (Zofran) 4 mg IV Q4-6HP PRN PRN Reason: Nausea And Vomiting Last Admin: 05/05/18 19:04 Dose: 4 mg Budesonide/Formoterol Fumarate [Symbicort] 160-4.5 Mcg Inhaler 2 dose INH BID [facility] Last Admin: 05/05/18 23:30 Dose: 2 dose Phenytoin (Dilantin) 150 mg CHEWED BID [facility] Last Admin: 05/05/18 21:41 Dose: 150 mg Prednisone (Prednisone) 40 mg PO [facility] Stop: 05/08/18 08:01 Last Admin: 05/06/18 07:38 Dose: 40 mg Prednisone (Prednisone) 10 mg PO [facility] Sodium Chloride (Saline Flush) 10 ml IV Q8 [facility] Last Admin: 05/06/18 06:08 Dose: 10 ml Medical - PN: A/P - Time Spent With Patient Total time spent is greater than 50% in coordination of care (as documented) at patient's floor/unit and/or counseling patient: - Narrative A/P Narrative: A: *Pneumonia, Aspiration: improving -Influenza? (pt did not get flu vac) -leukocytosis improving, no bandemia *COPD(not on home O2) *Acute hypoxic respiratory failure: 2/2 above, improving -Weaning down oxygen *Sepsis: 2/2 above, improving *h/o CHF not in exacerbation at this time *Paroxysmal atrial flutter: on BB *Hypothymism: *Seizure disorder: on phenytoin Plan: -Weaning down oxygen, clinically improving -Microbiology neg so far. flu test neg -d/c IV fluids, IV ertapenum (allergic to penicillin) to cover for anaerobes; PO azithromycin for atypical coverage -continue duonebs prn ?on steroids at baseline, will continue same but increase dose to 40mg daily x 5 days then back to baseline dose. -Resume home meds as appropriate -restart home BB at lower dose since BP is low normal -PT/OT -ppx: hep sq Full code. Medical - PN: Qual - Stroke Symptom Onset Unknown: No - VTE Deep Vein Thrombosis/Pulmonary Embolism Present on Admission: No
--- NOTE | 2018-05-06 08:27 | Internal Med Progress Note ---
<Aries Dhaliwal - Last Filed: 05/06/18 09:16> Medical - PN: Subj Patient information: Note initiated : 05/06/18 at 8:17 am Service Date, if different from initiated Date: [] Patient: Nidia Lopez 82 y/o F admitted on 05/04/18 for Fever 104/Pneumonia, Sepsis. Chief Complaint: [] Interval history: patient is an 82 y.o. female who presented to the ED yesterday with a history of confusion that started that morning. While in ED, pt has received Benadryl and was unable to provide any information. Pt's states that pt had started acting strange yesterday morning at home. She was not responding to questions and looked like she "was somewhere else". says that pt had been sick for the last week, coughing up green colored sputum and complaining of "lung pain" when bending over. She has also been complaining of being cold all the time. Pt had fever of 104 when arriving at ED with an elevated WBC, but normal lactic acid levels. CXR was read as negative, but CT w/ contrast showed bilateral lower lobe patchy infiltrates that were new compared to her last CT. Diagnosis of pneumonia was made in the ED and pt was admitted. 05/05/18 - Saw pt this morning. She knows where she is, the month and the president. She says that she feels much better, but didn't sleep well last night. Still complains of being cold and is still coughing up some sputum. She still reports some lung pain, but says other than the cough, feeling cold and being tired, she has no complaints. 05/06/18 - Spoke with patient this morning. Says that she didn't sleep well last night due to the frequent interruptions. She says she feels better, but not back to how she felt before she got a cold a little over a week ago. Pt is coughing less and says that sputum is no longer green. Still complains of "lung pain" when bending over. Says she isn't experiencing any shortness of breath. Had a temp of about 99 this morning around 3 and around 7. Her forehead felt warm to the touch. Pt still complain of being cold all the time. - Constitutional Vitals: Vital Signs Temp Pulse Resp BP Pulse Ox 99.2 F H 102 H 16 126/68 94 05/06/18 07:23 05/06/18 03:52 05/06/18 07:23 05/06/18 07:23 05/06/18 07:23 Period Temp Pulse Resp BP Sys/Crockett Pulse Ox Last 24 Hr 97.9 F-99.2 F 81-102 16-19 101-126/59-74 92-97 Intake and Output 05/05/18 05/06/18 05/06/18 21:59 05:59 13:59 Intake Total 1100 / 1100 Output Total 425 / 425 350 / 350 Balance -425 / -425 750 / 750 Weight 178 lb 8 oz Intake & Output: Intake & Output 05/05/18 05/06/18 05/06/18 21:59 05:59 13:59 Intake Total 1100 / 1100 Output Total 425 / 425 350 / 350 Balance -425 / -425 750 / 750 Weight 178 lb 8 oz Intake: IV 1000 / 1000 Lactated Ringers 1,000 ml @ 75 1000 / 1000 mls/hr IV .[id number] PENDING SALE TO [facility] Rx#: [id number] Oral 100 / 100 Output: Urine Catheter Amount 350 / 350 350 / 350 Emesis 75 / 75 Other: Urine Appearance Clear Urine Color Bright Yellow Bright Yellow Uretheral (Pagan) Bright Yellow Urine Odor Normal Normal General appearance: cooperative, no acute distress - Respiratory Respiratory exam: Present: decreased breath sounds, rhonchi (less severe than yesterday). Absent: chest wall tenderness, respiratory distress - Cardiovascular Cardiovascular exam: Present: normal rate and rhythm, RRR. Absent: gallop, rubs , systolic murmur - Skin Skin exam: Present: dry, warm Medical - PN: Obj Da - Labs CBC & Chem 7: 05/06/18 04:32 05/06/18 04:32 Labs: Abnormal Lab Results 05/06/18 05/06/18 05/05/18 04:32 04:32 03:50 WBC 16.8 H RBC 3.50 L Hgb 11.6 L Hct 35.3 L MCV 101.1 H RDW 15.3 H Gran % Lymph % (Auto) Gran # Lymph # (Auto) [place] # (Auto) RBC Morphology Abnorm A Macrocytosis 1+ A Glucose 122 H Calcium 8.2 L Phosphorus 2.5 L 2.2 L GGT 211 H 239 H Total Protein 5.3 L 5.2 L Albumin 2.8 L 2.6 L 05/05/18 05/04/18 05/04/18 03:50 10:43 10:43 WBC 26.4 H 12.8 H RBC 3.59 L Hgb 11.8 L Hct MCV 101.2 H 100.2 H RDW 15.2 H 14.9 H Gran % 81.7 H Lymph % (Auto) 11.7 L Gran # 17.1 H 10.5 H Lymph # (Auto) 7.2 H [place] # (Auto) 2.1 H RBC Morphology Macrocytosis Glucose 151 H Calcium Phosphorus GGT Total Protein Albumin Meds: Medications Acetaminophen (Tylenol) 650 mg PO Q4-6HP PRN PRN Reason: PAIN/FEVER > 101 Albuterol/Ipratropium (Duoneb) 3 ml NEB Q6HRT [facility]END[facility] Last Admin: 05/06/18 06:59 Dose: 3 ml Azithromycin (Zithromax) 250 mg PO DAILY [facility] Stop: 05/07/18 09:01 Furosemide (Lasix) 20 mg PO DAILY [facility] Heparin Sodium (Porcine) (Heparin) 5,000 unit SQ Q12 [facility] Last Admin: 05/05/18 20:06 Dose: 5,000 unit Ertapenem 1 gm/ Sodium (Chloride) 50 mls @ 100 mls/hr IV Q24H [facility] Lactated Ringer's (Lactated Ringers) 1,000 mls @ 75 mls/hr IV .[id number] P[facility] Last Admin: 05/06/18 01:28 Dose: 75 mls/hr Levothyroxine Sodium (Synthroid) 50 mcg PO ACB [facility] Last Admin: 05/06/18 07:39 Dose: 50 mcg Metoprolol Tartrate (Lopressor) 25 mg PO BID [facility] Last Admin: 05/05/18 21:41 Dose: 25 mg Montelukast Sodium (Singular) 10 mg PO DAILY [facility] Naloxone HCl (Narcan) 0.1 mg IV Q2MIN PRN PRN Reason: Opiate Reversal Ondansetron HCl (Zofran) 4 mg IV Q4-6HP PRN PRN Reason: Nausea And Vomiting Last Admin: 05/05/18 19:04 Dose: 4 mg Budesonide/Formoterol Fumarate [Symbicort] 160-4.5 Mcg Inhaler 2 dose INH BID [facility] Last Admin: 05/05/18 23:30 Dose: 2 dose Phenytoin (Dilantin) 150 mg CHEWED BID [facility] Last Admin: 05/05/18 21:41 Dose: 150 mg Prednisone (Prednisone) 40 mg PO [facility] Stop: 05/08/18 08:01 Last Admin: 05/06/18 07:38 Dose: 40 mg Prednisone (Prednisone) 10 mg PO [facility] Sodium Chloride (Saline Flush) 10 ml IV Q8 PEND[facility] Last Admin: 05/06/18 06:08 Dose: 10 ml Medical - PN: A/P - Time Spent With Patient Total time spent is greater than 50% in coordination of care (as documented) at patient's floor/unit and/or counseling patient: 25 - 35 minutes (1) Fever Status: Resolved Assessment and plan: 05/05 - Pt came into ED with fever of 104. Most likely caused by pneumonia. Pt is currently receiving Tylenol and last recorded temp was 99.2. Will continued to manage fever with Tylenol as needed while ABx's run their course. 05/06 - Fever is down to around 99 and only receiving Tylenol for fevers over 101. Will continue to monitor temps as abx's run their course Current Visit: Yes (2) Hypoxia Status: Chronic Assessment and plan: Pt is currently on 2L nasal canula with O2 sats of around 96. Pt says she has history of COPD and asthma. Sats were mostly dropped due to pneumonia exacerbating her chronic conditions. After resolution of pneumonia, will advise pt to return to levels of O2 used at home and to follow up with PCP for future changes in flow. Current Visit: Yes (3) Pneumonia Status: Acute Assessment and plan: 05/05 - Aspiration or CAP pneumonia suspected due to week long illness and coughing and no recent visits to the hospital suggesting HCAP. Sputum culture was contaminated and not reordered. Will consider azithromycin+Augmentin to cover CAP w/ respiratory comorbidities (COPD/Asthma) or atypical plus clindamycin for aspiration. Will consider reordering the sputum culture. 05/06 - Pt currently receiving ertapenem IV for broad coverage. Unsure of origin of pneumonia Current Visit: Yes (4) Asthma Status: Chronic Assessment and plan: Pt needs to follow up with PCP to insure use of appropriate steroid, LABA combos for her case. Current Visit: No Medical - PN: Qual - Stroke Symptom Onset Unknown: No - VTE Deep Vein Thrombosis/Pulmonary Embolism Present on Admission: No <ArcadiodionAnand Dalton - Last Filed: 05/06/18 12:08> Medical - PN: Subj Patient information: Note initiated : 05/06/18 at 12:08 pm Service Date, if different from initiated Date: [] Patient: Nidia Lopez 82 y/o F admitted on 05/04/18 for Fever 104/Pneumonia, Sepsis. Chief Complaint: [] - Constitutional Vitals: Vital Signs Temp Pulse Resp BP Pulse Ox 99.2 F H 102 H 16 126/68 94 05/06/18 07:23 05/06/18 03:52 05/06/18 07:23 05/06/18 07:23 05/06/18 07:23 Period Temp Pulse Resp BP Sys/Crockett Pulse Ox Last 24 Hr 97.9 F-99.2 F 81-102 16-19 101-126/59-74 92-94 Intake and Output 05/05/18 05/06/18 05/06/18 21:59 05:59 13:59 Intake Total 1100 / 1100 Output Total 425 / 425 350 / 350 Balance -425 / -425 750 / 750 Weight 80.966 kg Intake & Output: Intake & Output 05/05/18 05/06/18 05/06/18 21:59 05:59 13:59 Intake Total 1100 / 1100 Output Total 425 / 425 350 / 350 Balance -425 / -425 750 / 750 Weight 80.966 kg Intake: IV 1000 / 1000 Lactated Ringers 1,000 ml @ 75 1000 / 1000 mls/hr IV .[id number] PENDING S[facility] Rx#: [id number] Oral 100 / 100 Output: Urine Catheter Amount 350 / 350 350 / 350 Emesis 75 / 75 Other: Urine Appearance Clear Urine Color Bright Yellow Bright Yellow Uretheral (Pagan) Bright Yellow Urine Odor Normal Normal Medical - PN: Obj Da - Labs CBC & Chem 7: 05/06/18 04:32 05/06/18 04:32 Labs: Abnormal Lab Results 05/06/18 05/06/18 05/05/18 04:32 04:32 03:50 WBC 16.8 H RBC 3.50 L Hgb 11.6 L Hct 35.3 L MCV 101.1 H RDW 15.3 H Gran % Lymph % (Auto) Gran # Lymph # (Auto) [place] # (Auto) RBC Morphology Abnorm A Macrocytosis 1+ A Glucose 122 H Calcium 8.2 L Phosphorus 2.5 L 2.2 L GGT 211 H 239 H Total Protein 5.3 L 5.2 L Albumin 2.8 L 2.6 L 05/05/18 05/04/18 05/04/18 03:50 10:43 10:43 WBC 26.4 H 12.8 H RBC 3.59 L Hgb 11.8 L Hct MCV 101.2 H 100.2 H RDW 15.2 H 14.9 H Gran % 81.7 H Lymph % (Auto) 11.7 L Gran # 17.1 H 10.5 H Lymph # (Auto) 7.2 H [place] # (Auto) 2.1 H RBC Morphology Macrocytosis Glucose 151 H Calcium Phosphorus GGT Total Protein Albumin Meds: Medications Acetaminophen (Tylenol) 650 mg PO Q4-6HP PRN PRN Reason: PAIN/FEVER > 101 Albuterol/Ipratropium (Duoneb) 3 ml NEB Q6HRT PEND[facility] Last Admin: 05/06/18 06:59 Dose: 3 ml Azithromycin (Zithromax) 250 mg PO DAILY [facility] Stop: 05/07/18 09:01 Last Admin: 05/06/18 11:09 Dose: 250 mg Furosemide (Lasix) 20 mg PO DAILY [facility] Last Admin: 05/06/18 11:09 Dose: 20 mg Heparin Sodium (Porcine) (Heparin) 5,000 unit SQ Q12 PEND[facility] Last Admin: 05/06/18 11:08 Dose: 5,000 unit Ertapenem 1 gm/ Sodium (Chloride) 50 mls @ 100 mls/hr IV Q24H PEND[facility] S[facility] Last Admin: 05/06/18 11:08 Dose: 100 mls/hr Lactated Ringer's (Lactated Ringers) 1,000 mls @ 75 mls/hr IV .[id number] PEND[facility] S[facility] Last Admin: 05/06/18 01:28 Dose: 75 mls/hr Levothyroxine Sodium (Synthroid) 50 mcg PO ACB PEND[facility] S[facility] Last Admin: 05/06/18 07:39 Dose: 50 mcg Metoprolol Tartrate (Lopressor) 25 mg PO BID [facility] Last Admin: 05/06/18 11:09 Dose: 25 mg Montelukast Sodium (Singular) 10 mg PO DAILY [facility] Last Admin: 05/06/18 11:10 Dose: 10 mg Naloxone HCl (Narcan) 0.1 mg IV Q2MIN PRN PRN Reason: Opiate Reversal Ondansetron HCl (Zofran) 4 mg IV Q4-6HP PRN PRN Reason: Nausea And Vomiting Last Admin: 05/05/18 19:04 Dose: 4 mg Budesonide/Formoterol Fumarate [Symbicort] 160-4.5 Mcg Inhaler 2 dose INH BID [facility] Last Admin: 05/06/18 11:10 Dose: 2 dose Phenytoin (Dilantin) 150 mg CHEWED BID [facility] Last Admin: 05/06/18 11:08 Dose: 150 mg Prednisone (Prednisone) 40 mg PO [facility] Stop: 05/08/18 08:01 Last Admin: 05/06/18 07:38 Dose: 40 mg Prednisone (Prednisone) 10 mg PO [facility] Sodium Chloride (Saline Flush) 10 ml IV Q8 PENDING SALE [facility] Last Admin: 05/06/18 06:08 Dose: 10 ml Medical - PN: A/P - Time Spent With Patient Total time spent is greater than 50% in coordination of care (as documented) at patient's floor/unit and/or counseling patient:
[2018-05-06] MEDS: PHENYTOIN 50 MG TAB.CHEW CHEWED SCH ×2 (11:08→20:56)
[2018-05-06] MEDS: HEPARIN 5,000 UNIT/ML VIAL SQ SCH ×2 (11:08→20:57)
[2018-05-06] MEDS: ERTAPENEM 1 GM in 0.9 % SODIUM CHLORIDE 50 ML IV SCH (11:08)
[2018-05-06] MEDS: METOPROLOL TARTRATE 25 MG TABLET PO SCH ×2 (11:09→20:57)
[2018-05-06] MEDS: FUROSEMIDE 20 MG TABLET PO SCH (11:09)
[2018-05-06] MEDS: AZITHROMYCIN 250 MG TABLET PO SCH (11:09)
[2018-05-06] MEDS: Budesonide/Formoterol Fumarate [Symbicort] 160-4.5 mcg Inhaler INH SCH ×2 (11:10→20:57)
[2018-05-06] MEDS: MONTELUKAST 10 MG TABLET PO SCH (11:10)
--- NOTE | 2018-05-06 14:14 | Discharge Summary ---
Medical - DS: Prov Patient information: Note initiated : 05/06/18 at 2:08 pm Service Date, if different from initiated Date: [] Patient: Nidia Lopez 82 y/o F admitted on 05/04/18 for Fever 104/Pneumonia, Sepsis. Chief Complaint: [] Date of admission: 05/04/18 16:55 Discharge date: 05/07/18 Primary care physician: Sin Deleon Consults: 05/04/18 Consult to Physician [CONS] Stat Comment: Consulting Provider: Maurizio Ingram Reason For Exam: Physician to Consult Medical - DS: Meds - Discharge Medications Prescriptions: Cefdinir 300 mg PO BID #12 capsule Active and Home Medications: Home Medications Budesonide/Formoterol Fumarate [Symbicort 160-4.5 Mcg Inhaler] 2 puff IH BID 03/14 [History Confirmed 05/04/18 Last Taken Unknown] Fluticasone Hfa 220Mcg [Flovent Hfa 220Mcg] 2 puff INH BID 05/04/18 [History Confirmed 05/04/18 Last Taken Unknown] Furosemide [Lasix] 20 mg PO DAILY 05/04/18 [History Confirmed 05/04/18 Last Taken Unknown] Levothyroxine Sodium [Levoxyl] 50 mcg PO DAILY 05/04/18 [History Confirmed 05/04 Last Taken Unknown] Metoprolol Tartrate [Lopressor] 25 mg PO BID 05/04/18 [History Confirmed Last Taken Unknown] Montelukast Sodium [Singulair] 10 mg PO DAILY 05/04/18 [History Confirmed Last Taken Unknown] Phenytoin [Dilantin] 150 mg CHEWED BID 05/04/18 [History Confirmed 05/04/18 Last Taken Unknown] predniSONE [Prednisone] 10 mg PO QAC 05/04/18 [History Confirmed 05/04/18 Last Taken Unknown] Medical - DS: Hosp Hospital course: Mr. Lopez is a 82 year old F Ms. Lopez is a 82 year old F with h/o copd, presents to the ER brought in by family for not feeling well, confusion x 1 day On my evaluation patient was drowsy had received Benadryl before the CT scan and therefore was unable to provide me with any history. Most of the history taken from the patient's The patient has been sick for the last 1 week with cough chills malaise some shortness of breath, runny nose watery eyes. The patient condition has progressively gotten worse according to her . She has had poor appetite and early satiety. The patient this morning was noticed to be confused, and feeling very cold. The noted that she was not talking coherently and called his daughter who then brought the patient to the emergency room. According to the family the patient had no other complaints. They denied any chest pain, no headache changes in vision based on the history there was no suggestion of photophobia or phonophobia. There was no nausea vomiting no diarrhea or constipation reported. In the emergency room the patient was febrile on presentation with a temperature of 102.9, maximum temperature recorded in the ER is 105. Heart rate has been elevated between 100-115. Blood pressure stable at 134/73, patient was tachypneic with a rate of 28, she was a 97% with 4 L of oxygen. Chest x-ray was interpreted as negative, EKG is sinus rhythm, first-degree heart block, old inferior anterior wall [place] Labs showed elevated WBC count at 12.8, platelets 254, hemoglobin 13.6. UA was negative, lactic acid 1.7, pro calcitonin 0.57, sodium 142 potassium 4.4 bicarbonate 25 creatinine 1.[address] abdomen and pelvis showed bilateral pneumonia, emphysema and a dilated esophagus with thickened distal part. On talking with the family the patient had no difficulty in swallowing, and the patient did not have any cough while eating food. By the time when I evaluated the patient the patient's blood pressure had dropped down and was not 90 systolic. Map more than 65. Patient had received azithromycin in the ER. 05/05 Patient seen and examined, no acute overnight events. Patient doing well this morning. Mental status much better feels she did not sleep well last night. Cough still present shortness of breath still present. Fever curve is much better. Influenza test is negative. Cultures negative growth so far. Patient is hemodynamically stable for transfer to medical floor. Labs reviewed showed elevated WBC count, patient is on steroids, clinically has shown improvement. 05/06 No overnight events other than stating poor sleep from interruptions. Mild productive cough of yellow white sputum which is improved. Denies shortness of breath. 05/07 Ambulating on room air with sats in the low 90s. Continue dysphasia diet. Stable for discharge. Discharge diagnosis: Pneumonia possibly aspiration. Respiratory failure sepsis - Time Spent with Patient Total time spent providing and/or coordinating discharge services: Greater than 30 minutes Medical - DS: Exam - Constitutional Vitals: Vital Signs Temp Pulse Pulse Resp BP Pulse Ox 05/06/18 13:31 98 05/06/18 13:26 83 19 05/06/18 12:00 98.4 F 20 112/62 92 05/06/18 07:23 99.2 F H 16 126/68 94 05/06/18 03:52 99.1 F H 102 H 19 114/67 94 05/06/18 01:35 81 19 05/05/18 23:32 98 F 94 H 18 103/59 93 05/05/18 20:30 82 18 05/05/18 20:00 97.9 F 88 18 116/74 94 05/05/18 16:46 98.7 F 05/05/18 16:00 98.2 F 18 101/65 92 Intake and Output 05/06/18 05/06/18 05/06/18 05:59 13:59 21:59 Intake Total 1100 / 1100 Output Total 350 / 350 Balance 750 / 750 Intake: IV 1000 / 1000 Lactated Ringers 1,000 ml @ 75 1000 / 1000 mls/hr IV .[id number] [facility] Rx#: [id number] Oral 100 / 100 Output: Urine Catheter Amount 350 / 350 Other: Urine Appearance Uretheral (Pagan) Clear Urine Color Bright Yellow Uretheral (Pagan) Bright Yellow Urine Odor Normal Uretheral (Pagan) Normal Medical - DS: Data Labs on day of discharge: Labs from last 24 hours 05/06/18 05/06/18 05/06/18 04:32 04:32 04:32 WBC 16.8 H RBC 3.50 L Hgb 11.6 L Hct 35.3 L MCV 101.1 H MCH 33.1 MCHC 32.7 RDW 15.3 H Plt Count 256 MPV 9.0 Total Counted 100 Seg Neutrophils % 70 Band Neutrophils % Not Reportable Lymphocytes % 26 Monocytes % (Manual) 4 Platelet Estimate Normal RBC Morphology Abnorm A Macrocytosis 1+ A Sodium 145 Potassium 4.0 Chloride 108 Carbon Dioxide 27 Anion Gap 10.0 BUN 14 Creatinine 0.9 GFR Calculation 60 Glucose 122 H Uric Acid 4.6 Calcium 8.6 Phosphorus 2.5 L Magnesium 2.1 Total Bilirubin < 0.2 Direct Bilirubin < 0.2 GGT 211 H AST 14 ALT 11 Alkaline Phosphatase 68 Lactate Dehydrogenase 152 Total Protein 5.3 L Albumin 2.8 L Globulin 2.5 Albumin/Globulin Ratio 1.1 Triglycerides 78 Procalcitonin 9.59 Preliminary micro results at discharge 05/04/18 12:15 Blood Culture - Preliminary Blood 05/04/18 11:50 Blood Culture - Preliminary Blood Medical - DS: A/P - Patient/Caregiver Discharge Instructions Activity: increase activity as tolerated Diet: Cardiac, Dysphagia Advanced Prescriptions: Cefdinir 300 mg PO BID #12 capsule - Follow up Plan Follow up with: Sin Deleon PA-C [Primary Care Provider] - Disposition: Home, Self-Care Prognosis: Fair Rehab Potential: Fair Medical - DS: Qual - VTE Deep Vein Thrombosis/Pulmonary Embolism Present on Admission: No
[2018-05-06] MEDS ORDERED: METOPROLOL TARTRATE 25 MG TABLET PO SCH (21:00)
[2018-05-06] MEDS: ONDANSETRON 4 MG/2 ML VIAL IV PRN (22:30)
[2018-05-07] MEDS: IPRATROPIUM/ALBUTEROL 3 ML AMPUL.NEB NEB SCH ×3 (00:19→13:36)
[2018-05-07] MEDS: 0.9 % SODIUM CHLORIDE 10 ML SYRINGE IV SCH ×2 (06:21→16:25)
[2018-05-07 06:22] LABS: Basophils # (Auto) 0 K/mcL (0.0-0.3); Basophils % (Auto) 0.3 % (0.0-2.0); Eosinophils # (Auto) 0.1 K/mcL (0.0-0.7); Eosinophils % (Auto) 0.5 % (0.0-7.0); Granulocytes % (Auto) 54.8 % (38.0-78.0); Lymphocytes # (Auto) 4.6 K/mcL (1.5-4.8); Lymphocytes % (Auto) 34.8 % (15.5-49.0); Mean Cell Volume 101.5 fL (80.0-100.0); Mean Corpuscular HGB Conc 32.9 g/dL (31.0-36.0); Mean Corpuscular Hemoglobin 33.4 pg (26.0-34.0); Monocytes # (Auto) 1.3 K/mcL (0.1-0.9); Monocytes % (Auto) 9.6 % (1.0-12.0); Platelet Count 248 K/mcL (140-440); RBC 3.38 M/mcL (4.00-5.20); Red Cell Distribution Width 15.2 % (11.5-14.5)
[2018-05-07 06:50] LABS: Blood Urea Nitrogen 15 mg/dl (8-23)
[2018-05-07] MEDS: LEVOTHYROXINE 50 MCG TABLET PO SCH (07:49)
[2018-05-07] MEDS: HEPARIN 5,000 UNIT/ML VIAL SQ SCH (08:25)
[2018-05-07] MEDS: FUROSEMIDE 20 MG TABLET PO SCH (08:26)
[2018-05-07] MEDS: MONTELUKAST 10 MG TABLET PO SCH (08:26)
[2018-05-07] MEDS: predniSONE 10 MG TABLET PO SCH (08:26)
[2018-05-07] MEDS: METOPROLOL TARTRATE 25 MG TABLET PO SCH (08:27)
[2018-05-07] MEDS: PHENYTOIN 50 MG TAB.CHEW CHEWED SCH (08:28)
[2018-05-07] MEDS: ERTAPENEM 1 GM in 0.9 % SODIUM CHLORIDE 50 ML IV SCH (08:28)
[2018-05-07] MEDS: Budesonide/Formoterol Fumarate [Symbicort] 160-4.5 mcg Inhaler INH SCH (08:45)
[2018-05-07] MEDS: AZITHROMYCIN 250 MG TABLET PO SCH (09:13)
--- NOTE | 2018-05-07 10:19 | XRay Report ---
CLINICAL INFORMATION: aspiration COMPARISON: 05/04/2018 portable film and two view chest x-ray 05/16/2011 FINDINGS: Moderate cardiomegaly is unchanged. Mediastinum and pulmonary vessels are normal. Moderate left lower lobe infiltrate and small left pleural effusion has developed. IMPRESSION: Moderate left lower lobe pneumonia and small left pleural effusion is no. Interpreted and Authenticated by: Christopher Adame 05/07/18
[2018-05-09] MEDS ORDERED: predniSONE 10 MG TABLET PO SCH ×2 (08:00)
== END 2018-05-07 17:55 | disposition home or self-care (01) | DRG 871 ==
LOC: ED 10:26 → ICU 16:55 → MEDSUR 05-05 15:05
PROVIDERS: ADMIT Internal Medicine; ATTEND Internal Medicine
CPT/HCPCS: 84145; 97161; 97167; 99223; J0131; J0456; J1200; J1335; J1644; J2405; J2930; J7030; J7050; J7060; J7120; J7620; J7620-GY; Q9967

== ENCOUNTER 2022-01-10 08:55 | Observation (INO) ==
[2022-01-10] MEDS ORDERED: IOPAMIDOL 100 ML BOTTLE IV ONE (08:56)
[2022-01-10] MEDS ORDERED: ALTEPLASE 0 ML IV ONE (09:18)
--- NOTE | 2022-01-10 09:20 | Cat Scan Report ---
CLINICAL INFORMATION: Code stroke COMPARISON: 02/27/2021 TECHNIQUE: 2.5 mm helical slices were obtained in the skull base to vertex. Following reconstruction, axial reformatted images were reviewed at bone and parenchymal windows. The exam was performed using radiation dose optimization techniques including, but not limited to, automated exposure control, adjustment of the mA and/or kV according to patient size and use of iterative reconstruction technique. FINDINGS: The ventricles, sulci, fissures, and cisterns are symmetrically enlarged compatible with moderate age-related atrophy. No extra-axial fluid collections are identified. Moderate patchy chronic ischemic changes, in the deep cerebral white matter, are expected for age. There is no hemorrhage, mass effect, or edema. Bone windows show no osseous abnormality. IMPRESSION: Moderate atrophy and chronic ischemic changes in the deep cerebral white matter-expected for age and unchanged. No intracerebral hemorrhage or other acute findings Interpreted and Authenticated by: Christopher Adame 01/10/22
[2022-01-10 09:50] LABS: POC INR 0.9 (0.8-1.2); POC Pro Time 10.9 (11.9-14.5)
[2022-01-10] MEDS ORDERED: LORazepam 2 MG/ML VIAL IV ONE (09:51)
--- NOTE | 2022-01-10 09:58 | Emergency Department Note ---
HPI General Chief complaint: Stroke Symptoms Stated complaint: Stroke symptoms Time Seen by Provider: 01/10/22 09:00 Source: patient and family Mode of arrival: EMS History of Present Illness HPI Narrative: Narrative: This is a 86-year-old female with a past medical history of seizures she is on phenytoin presents to the emergency department with difficulty speaking, myoclonic jerking and gait instability. Patient presents via EMS. History is obtained entirely via EMS initially they were unsure of the exact onset of symptoms. Patient's arrived later he states that this morning patient woke up she was in her normal state of health until around 730 which is an hour and a half prior to arrival the patient was not answering questions she was not able to walk. The patient did have COVID last week there was no fevers and he states that her symptoms were relatively mild she had an at home positive test. The denies seeing any seizure-like activity he states that her seizures are typically tonic-clonic in nature. There has been no loss of bowel or bladder no tongue biting. The states that the patient has had episodes with tremors before she was prescribed Soma for this and it improved. The states that the patient has been taking her Dilantin appropriately no missed doses or excessive doses. Related Data Home Medications Medication Instructions Recorded Confirmed metoprolol tartrate 25 mg tablet 25 mg PO BID 05/04/18 01/10/22 vitamin B complex 1,000 mg PO DAILY 12/15/19 01/10/22 Previous Rx's Medication Instructions Recorded ipratropium 0.5 mg-albuterol 3 mg 3 ml INHALATION BID #180 ml 09/19/20 (2.5 mg base)/3 mL nebulization soln phenytoin 50 mg chewable tablet 150 mg PO BID 90 Days #540 tab 05/24/21 furosemide 20 mg tablet 20 mg PO QDAY 90 Days #90 tab 07/30/21 levothyroxine 50 mcg tablet 50 mcg PO QDAY 90 Days #90 tab 07/30/21 montelukast 10 mg tablet 10 mg PO QDAY 90 Days #90 tab 07/30/21 Symbicort 160 mcg-4.5 2 puff INHALATION BID #10.2 g NS 09/12/21 mcg/actuation HFA aerosol inhaler (budesonide-formoterol) glycopyrrolate 2 mg tablet 2 mg PO BID 90 Days #180 tab 10/02/21 omeprazole 20 mg capsule,delayed 20 mg PO QAM #30 cap 12/28/21 release Allergies Allergy/AdvReac Type Severity Reaction Status Date / Time aspirin Allergy Unknown Nausea, Verified 01/04/22 10:23 vomiting baclofen Allergy Confusion Verified 01/11/22 10:41 Cyclobenzaprine Allergy Vomiting Verified 01/11/22 10:41 moxifloxacin Allergy Vomiting Verified 01/11/22 10:41 Penicillins AdvReac Rash Verified 01/11/22 10:41 Review of Systems ROS ROS Narrative: Narrative: Unable to obtain secondary to medical condition [facility] Narrative Patient History Narrative: Narrative: Medical/Surgical/Family History All Active Problems Acute alteration in mental status (Acute) COVID (Acute) Post-ictal confusion (Acute) UTI (urinary tract infection) (Acute) Clonus (Acute) Gastroesophageal reflux disease (Chronic) Constipation (Chronic) Excessive salivation (Chronic) Medicare annual wellness visit, subsequent (Acute) Left hip pain (Acute) Fall (Acute) Arm pain, left (Acute) Contusion of arm, left (Acute) Elbow fracture, left (Acute) Closed fracture of head of left radius (Acute) Seizure disorder (Chronic) Hepatic disease (Chronic) Tremor (Chronic) Unspecified hypothyroidism (Chronic) Osteopenia (Chronic) Prolapsed bladder (Chronic) Chronic left hip pain (Chronic) History of tobacco use (Chronic) Vitamin B 12 deficiency (Chronic) Restless leg syndrome (Chronic) Peripheral neuropathy (Chronic) Osteoarthritis (Chronic) Kidney cyst, acquired (Chronic) Elevated blood pressure reading without diagnosis of hypertension (Chronic) Edema (Chronic) 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 Elevated blood pressure reading without diagnosis of hypertension Excessive salivation Gastroesophageal reflux disease Hepatic disease History of tobacco use Hypothyroidism (acquired) Hypoxia Insomnia Kidney cyst, acquired right kidney. Left hip pain Lipoma Nocturia Osteoarthritis mainly her knees. Osteoporosis Paroxysmal atrial flutter Peripheral neuropathy Pneumonia Prolapsed bladder Restless leg syndrome nocturnal cramping Seizure disorder Diagnosed in the seventh grade. Tremor Urinary incontinence in 2009 stated: has had for past 3 years and occasional sense of incomplete bladder emptying. Vitamin B 12 deficiency Surgical History H/O colonoscopy (~02/2004) colon polyp removed History of cataract surgery Bilateral History of cholecystectomy at age 27 History of nasal surgery 5 surgeries for nasal polyps History of sinus surgery multiple History of thumb surgery History of tonsillectomy and adenoidectomy History of tubal ligation Family History Mother , at age 66 from cancer Cancer Hypertension, essential Heart attack Migraines Diabetes Father , at age 42 from pneumonia Asthma Pneumonia Sister , from complications of DM Diabetes Cancer Daughter , at age 40 from metastatic cancer-unknown primary Cancer Sister , from cancer Malignant neoplasm of uterus Other Benign neoplasm of brain Colon cancer Malignant neoplasm of kidney Melanoma Social History Smoking Status: Former smoker Alcohol Intake Frequency: does not drink Substance Use: does not use Exam Narrative Narrative: Narrative: Vital signs noted General: Awake. Alert. No distress. Skin: Warm. Dry. No rash. HEENT: Atraumatic Neck: No tenderness to palpation. Good ROM. Cardiovascular: RRR. No murmur. No rubs. No gallops. Respiratory: No respiratory distress. Breath sounds equal. Lungs clear. Gastrointestinal: Abdomen soft. No tenderness. No distention. Normal bowel sounds. No palpable organomegaly or masses. Back: No deformity. No CVAT. Musculoskeletal: No tenderness. No swelling. No erythema. No edema. Radial Pulse Symmetric Neurological: Face is symmetric, when patient is asked a question she is very slow to respond and answers inappropriately she will state her name she will not state her age where she is at or the year, she is unable to follow commands and does not track with her eyes. Intermittently every 20 to 30 seconds she has jerking movement of her extremities and neck. Course Vital Signs Vital signs: Vital Signs Pulse Rate 78 01/10/22 08:59 Blood Pressure 154/83 01/10/22 08:59 Pulse Oximetry (%) 99 01/10/22 08:59 Temperature 98.3 F 01/11/22 12:45 Pulse Rate 73 01/11/22 12:45 Respiratory Rate 20 01/11/22 12:45 Blood Pressure 115/85 01/11/22 12:45 Pulse Oximetry (%) 98 01/11/22 12:45 MDM MDM Narrative Medical decision making narrative: Narrative: This is a 86-year-old female with a past medical history of seizure disorder presents to the emergency department with difficulty speaking, global weakness. At baseline patient uses a walker and is normally conversant. Her states that she was in her usual state of health when she woke up this morning. Differential includes but is not limited to cerebrovascular event, seizure, metabolic encephalopathy, occult infection, postictal state. Given the acuity of the onset of symptoms patient was triaged as a stroke alert. Te lestroke was consulted they did not feel that patient's symptoms were related to a CVA and recommended against giving tPA. They are concerned more about postictal state or seizure-like activity or medication side effect. Patient's Dilantin levels were checked and found to be within therapeutic levels. Patient was given 1 mg of Ativan her myoclonic activity did cease and she was alert and oriented she was tired but moving all extremities recognizing her and answering questions appropriately. Patient was diagnosed with COVID last week I am wondering if she was having breakthrough seizures secondary to this illness. CT imaging of her brain revealed no large vessel occlusion or intracranial hemorrhage. Lab Data Result diagrams: 01/11/22 05:31 01/11/22 05:31 Labs: Lab Results 01/10/22 01/10/22 01/10/22 Range/Units 09:43 09:43 09:43 WBC 9.4 (4.5-11.0) K/mcL RBC 4.10 (3.59-5.38) M/mcL Hgb 13.5 (11.2-15.7) g/dL Hct 41.1 (34.1-44.9) % MCV 100.2 H (80.0-100.0) fL MCH 32.9 (26.0-34.0) pg MCHC 32.8 (31.0-36.0) g/dL RDW 14.6 H (11.5-14.5) % Plt Count 268 (140-440) K/mcL MPV 10.2 (7.4-10.4) fL Neut % (Auto) 42.7 (38.0-78.0) % Lymph % (Auto) 49.4 H (15.5-49.0) % Quay % (Auto) 7.6 (1.0-12.0) % Eos % (Auto) 0 (0.0-7.0) % Baso % (Auto) 0.3 (0.0-2.0) % Lymph # (Auto) 4.62 (1.50-4.80) K/mcL [place]ay # (Auto) 0.71 (0.10-0.90) K/mcL Eos # (Auto) 0 (0.00-0.70) K/mcL Baso # (Auto) 0.03 (0.00-0.30) K/mcL Absolute Neutrophils 3.99 (1.80-8.00) K/mcL POC PT (11.9-14.5) PT 12.0 (11.9-14.5) sec POC INR (0.8-1.2) INR 0.8 L (0.9-1.1) APTT 25.9 (20.0-37.0) sec Sodium 142 (133-145) mmol/L Potassium 4.5 (3.3-5.1) mmol/L Chloride 106 (96-108) mmol/L Carbon Dioxide 30 (22-30) mmol/L Anion Gap 6.0 L (8.0-16.0) BUN 17 (8-23) mg/dL Creatinine 0.8 (0.6-1.1) mg/dL GFR Calculation 67 Glucose 105 (70-105) mg/dL Calcium 9.0 (8.6-10.4) mg/dL Phosphorus (2.5-4.5) mg/dL Magnesium (1.6-2.5) mg/dL Total Bilirubin 0.3 (0.1-1.0) mg/dL AST 24 (<32) U/L ALT 15 (<40) U/L Alkaline Phosphatase 121 H (39-117) U/L Troponin T (<0.03) ng/mL Total Protein 6.6 (5.9-8.4) gm/dL Albumin 3.7 (3.2-5.2) gm/dL Globulin 2.9 (2.2-3.7) gm/dL Albumin/Globulin Ratio 1.3 (1.0-2.3) TSH (0.27-5.01) uIU/mL Urine Color Urine Appearance (Clear) Urine pH (5.0-9.0) Ur Specific [place] (1.000-1.035) Urine Protein (Negative) mg/dL Urine Glucose (UA) (Negative) mg/dL Urine Ketones (Negative) mg/dL Urine Occult Blood (Negative) tanisha/mcL Urine Nitrate (Negative) Urine Bilirubin (Negative) mg/dL Urine Urobilinogen mg/dL Ur Leukocyte Esterase (Negative) /uL Urine RBC (0-3) /hpf Urine WBC (0-4) /hpf Ur Squamous Epith Cells (0-4) /hpf Urine Bacteria (0) /hpf Ur Culture Indicated? Phenytoin ug/mL POC Troponin I (0.02-0.08) 01/10/22 01/10/22 01/10/22 Range/Units 09:43 09:43 09:43 WBC (4.5-11.0) K/mcL RBC (3.59-5.38) M/mcL Hgb (11.2-15.7) g/dL Hct (34.1-44.9) % MCV (80.0-100.0) fL MCH (26.0-34.0) pg MCHC (31.0-36.0) g/dL RDW (11.5-14.5) % Plt Count (140-440) K/mcL MPV (7.4-10.4) fL Neut % (Auto) (38.0-78.0) % Lymph % (Auto) (15.5-49.0) % Quay % (Auto) (1.0-12.0) % Eos % (Auto) (0.0-7.0) % Baso % (Auto) (0.0-2.0) % Lymph # (Auto) (1.50-4.80) K/mcL Quay # (Auto) (0.10-0.90) K/mcL Eos # (Auto) (0.00-0.70) K/mcL Baso # (Auto) (0.00-0.30) K/mcL Absolute Neutrophils (1.80-8.00) K/mcL POC PT (11.9-14.5) PT (11.9-14.5) sec POC INR (0.8-1.2) INR (0.9-1.1) APTT (20.0-37.0) sec Sodium (133-145) mmol/L Potassium (3.3-5.1) mmol/L Chloride (96-108) mmol/L Carbon Dioxide (22-30) mmol/L Anion Gap (8.0-16.0) BUN (8-23) mg/dL Creatinine (0.6-1.1) mg/dL GFR Calculation Glucose (70-105) mg/dL Calcium (8.6-10.4) mg/dL Phosphorus 2.6 (2.5-4.5) mg/dL Magnesium 2.7 H (1.6-2.5) mg/dL Total Bilirubin (0.1-1.0) mg/dL AST (<32) U/L ALT (<40) U/L Alkaline Phosphatase (39-117) U/L Troponin T < 0.01 (<0.03) ng/mL Total Protein (5.9-8.4) gm/dL Albumin (3.2-5.2) gm/dL Globulin (2.2-3.7) gm/dL Albumin/Globulin Ratio (1.0-2.3) TSH 5.64 H (0.27-5.01) uIU/mL Urine Color Urine Appearance (Clear) Urine pH (5.0-9.0) Ur Specific [place] (1.000-1.035) Urine Protein (Negative) mg/dL Urine Glucose (UA) (Negative) mg/dL Urine Ketones (Negative) mg/dL Urine Occult Blood (Negative) tanisha/mcL Urine Nitrate (Negative) Urine Bilirubin (Negative) mg/dL Urine Urobilinogen mg/dL Ur Leukocyte Esterase (Negative) /uL Urine RBC (0-3) /hpf Urine WBC (0-4) /hpf Ur Squamous Epith Cells (0-4) /hpf Urine Bacteria (0) /hpf Ur Culture Indicated? Phenytoin 19.3 ug/mL POC Troponin I (0.02-0.08) 01/10/22 01/10/22 01/10/22 Range/Units 09:45 09:45 11:48 WBC (4.5-11.0) K/mcL RBC (3.59-5.38) M/mcL Hgb (11.2-15.7) g/dL Hct (34.1-44.9) % MCV (80.0-100.0) fL MCH (26.0-34.0) pg MCHC (31.0-36.0) g/dL RDW (11.5-14.5) % Plt Count (140-440) K/mcL MPV (7.4-10.4) fL Neut % (Auto) (38.0-78.0) % Lymph % (Auto) (15.5-49.0) % Quay % (Auto) (1.0-12.0) % Eos % (Auto) (0.0-7.0) % Baso % (Auto) (0.0-2.0) % Lymph # (Auto) (1.50-4.80) K/mcL [place] # (Auto) (0.10-0.90) K/mcL Eos # (Auto) (0.00-0.70) K/mcL Baso # (Auto) (0.00-0.30) K/mcL Absolute Neutrophils (1.80-8.00) K/mcL POC PT 10.9 L (11.9-14.5) PT (11.9-14.5) sec POC INR 0.9 (0.8-1.2) INR (0.9-1.1) APTT (20.0-37.0) sec Sodium (133-145) mmol/L Potassium (3.3-5.1) mmol/L Chloride (96-108) mmol/L Carbon Dioxide (22-30) mmol/L Anion Gap (8.0-16.0) BUN (8-23) mg/dL Creatinine (0.6-1.1) mg/dL GFR Calculation Glucose (70-105) mg/dL Calcium (8.6-10.4) mg/dL Phosphorus (2.5-4.5) mg/dL Magnesium (1.6-2.5) mg/dL Total Bilirubin (0.1-1.0) mg/dL AST (<32) U/L ALT (<40) U/L Alkaline Phosphatase (39-117) U/L Troponin T (<0.03) ng/mL Total Protein (5.9-8.4) gm/dL Albumin (3.2-5.2) gm/dL Globulin (2.2-3.7) gm/dL Albumin/Globulin Ratio (1.0-2.3) TSH (0.27-5.01) uIU/mL Urine Color Yellow Urine Appearance Clear (Clear) Urine pH 8.5 (5.0-9.0) Ur Specific [place] 1.015 (1.000-1.035) Urine Protein Negative (Negative) mg/dL Urine Glucose (UA) Negative (Negative) mg/dL Urine Ketones Negative (Negative) mg/dL Urine Occult Blood Trace-intact A (Negative) tanisha/mcL Urine Nitrate Negative (Negative) Urine Bilirubin Negative (Negative) mg/dL Urine Urobilinogen Normal mg/dL Ur Leukocyte Esterase Negative (Negative) /uL Urine RBC < 1 (0-3) /hpf Urine WBC 1 (0-4) /hpf Ur Squamous Epith Cells 0 (0-4) /hpf Urine Bacteria None (0) /hpf Ur Culture Indicated? No Phenytoin ug/mL POC Troponin I 0 L (0.02-0.08) EKG Data EKG #1: EKG attestation: Yes I reviewed and interpreted this EKG., Yes There are no EKG findings of acute coronary syndrome and Yes This EKG will be read by superintendent meter tests EKG results narrative: EKG per my interpretation shows a sinus rhythm with a rate of 80 there is Q waves in the inferior leads there is a incomplete left bundle branch block GA interval is 241 Discharge Plan Patient/Caregiver Discharge Instructions Pt seen by [facility]/PA only: No Clinical Impression: Acute alteration in mental status Activity: increase activity as tolerated Patient Disposition: Xfer As Outpt/Obs ([facility]) Condition: Fair Discharge Date/Time: 01/10/22 14:40
--- NOTE | 2022-01-10 10:06 | Cat Scan Report ---
CLINICAL INFORMATION: Code stroke COMPARISON: None. TECHNIQUE: 80 cc of Isovue-370 were injected intravenously , and using SmartPrep to maximize cerebral arterial opacification, 0.625 mm helical slices were obtained from the skull base through the cerebral vertex. Following reconstruction , sagittal, coronal and axial reformatted images were processed and reviewed at multiple windows and levels. 3D volume rendered and MIP images were acquired at a independent workstation. The exam was performed using radiation dose optimization techniques including, but not limited to, automated exposure control, adjustment of the mA and/or kV according to patient size and use of iterative reconstruction technique. FINDINGS: The intracranial internal carotid, vertebral, basilar, anterior, middle and posterior cerebral arteries and their branches are well-opacified and normal in contour and caliber without significant stenosis, occlusion or other pathology. Superficial/deep cerebral veins and deep venous sinuses are widely patent IMPRESSION: Normal exam Interpreted and Authenticated by: Christopher Adame 01/10/22
--- NOTE | 2022-01-10 10:15 | Cat Scan Report ---
CLINICAL INFORMATION: Code stroke COMPARISON: None. TECHNIQUE: 80 cc of Isovue-300 were injected intravenously followed by 40 cc of normal saline flush. Using SmartPrep, 0.625 helical slices were obtained from the thoracic aortic arch through the y[place] de[place] of [place]. Following reconstruction, 2.5 mm sagittal, coronal and axial reformatted images were processed. MIPS , 3-D volume rendering and CPR images were also constructed. The exam was performed using radiation dose optimization techniques including, but not limited to, automated exposure control, adjustment of the mA and/or kV according to patient size and use of iterative reconstruction technique. FINDINGS: The thoracic aortic arch is normal diameter with minimal intimal thickening and conventional aortic branching. The brachiocephalic, both subclavian, both common, internal and external carotid and both vertebral arteries are widely patent without significant abnormality. Moderate right TMJ degeneration noted. Left TMJ is normal. Thyroid is diminutive. Lung apices show scattered bullae compatible with mild COPD. IMPRESSION: 1. Thoracic aortic arch all carotid brachiocephalic vertebral and subclavian arteries are widely patent 2. Diminutive thyroid 3. Moderate right TMJ degeneration. Interpreted and Authenticated by: Christopher Adame 01/10/22
[2022-01-10 10:22] LABS: Basophils # (Auto) 0.03 K/mcL (0.00-0.30); Basophils % (Auto) 0.3 % (0.0-2.0); Eosinophils # (Auto) 0 K/mcL (0.00-0.70); Eosinophils % (Auto) 0 % (0.0-7.0); Hematocrit 41.1 % (34.1-44.9); Hemoglobin 13.5 g/dL (11.2-15.7); Lymphocytes # (Auto) 4.62 K/mcL (1.50-4.80); Lymphocytes % (Auto) 49.4 % (15.5-49.0); Mean Cell Volume 100.2 fL (80.0-100.0); Mean Corpuscular HGB Conc 32.8 g/dL (31.0-36.0); Mean Platelet Volume 10.2 fL (7.4-10.4); Monocytes # (Auto) 0.71 K/mcL (0.10-0.90); Monocytes % (Auto) 7.6 % (1.0-12.0); Neutrophils % (Auto) 42.7 % (38.0-78.0); Platelet Count 268 K/mcL (140-440); Red Cell Distribution Width 14.6 % (11.5-14.5); WBC 9.4 K/mcL (4.5-11.0)
--- NOTE | 2022-01-10 10:40 | XRay Report ---
CLINICAL INFORMATION: Stroke symptoms COMPARISON: None. TECHNIQUE: PA and Lateral views FINDINGS: Mild cardiomegaly is unchanged. Mediastinum and pulmonary vessels are normal. A vague 20 mm nodular density is developed over the right midlung. Remainder lungs are clear. No effusions. IMPRESSION: Mild stable cardiomegaly. No acute disease Vague 20 mm nodular density right midlung. Suggest two-view upright chest x-ray for further evaluation. This may be artifact Interpreted and Authenticated by: Christopher Adame 01/10/22
[2022-01-10 10:57] LABS: INR 0.8 (0.9-1.1); Partial Thromboplastin Time 25.9 sec (20.0-37.0)
[2022-01-10 10:58] LABS: Dilantin Test 19.3 ug/mL
[2022-01-10 11:02] LABS: ALT/SGPT 15 U/L (<40); AST/SGOT 24 U/L (<32); Albumin 3.7 gm/dL (3.2-5.2); Albumin/Globulin Ratio 1.3 (1.0-2.3); Alkaline Phosphatase 121 U/L (39-117); Bilirubin,Total 0.3 mg/dL (0.1-1.0); Blood Urea Nitrogen 17 mg/dL (8-23); Carbon Dioxide 30 mmol/L (22-30); Chloride 106 mmol/L (96-108); Globulin 2.9 gm/dL (2.2-3.7); Glomerular Filtration Rate 67; Glucose 105 mg/dL (70-105)
--- NOTE | 2022-01-10 11:53 | XRay Report ---
CLINICAL INFORMATION: Vague lingular nodular density overlying the right upper lung on portable exam COMPARISON: Chest x-ray 01/09/2022 TECHNIQUE: PA and Lateral views FINDINGS: Mild cardiomegaly is unchanged. Mediastinum and pulmonary vessels are normal. There is no definite right upper lobe nodule. In this region, there is moderate focal chondrocalcinosis in the anterior right second rib.. No nodular density on lateral view. No infiltrates or effusions. Mild old compression fractures seen throughout the thoracic spine. IMPRESSION: Mild stable cardiomegaly. No acute disease. No definite right upper lobe nodule. 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
[2022-01-10 12:01] LABS: Phosphorous 2.6 mg/dL (2.5-4.5); Thyroid Stimulating Hormone 5.64 uIU/mL (0.27-5.01)
--- NOTE | 2022-01-10 12:57 | Internal Med History&Physical ---
HPI History of Present Illness Patient information: Note initiated : 01/10/22 at 12:48 pm Service Date, if different from initiated Date: [] Patient: Nidia Lopez 86 y/o F admitted on for Stroke symptoms. Chief Complaint: [jerking] Chief complaint: jerking History of present illness: Ms. Lopez is a 86 year old F history of seizure, asthma, CHF, recent CoVID pneumonia, hypothyroidism, presenting with 1 day history of jerking/tonic-clonic activities. She has a history of seizure and she has been taking Dilantin and she is taking it as instructed never missing a dose. She was also being tested for COVID-pneumonia a week ago and was being tested positive she is currently on room air. Earlier this morning she was noted by her to show jerking/tonic-clonic activities. She is to be collateral surrounding and when she was being questions she try to answer but she cannot say a word. The whole tonic-clonic jerking activities last for about an hour until she was given Ativan in the ER. Vital signs within normal limits and she is tolerating room air with oxygen saturation in the high 90s. Labs also largely unremarkable lack of leukocytosis with WBC of 10. CT of the head without contrast no acute i ntracranial pathologies. CTA head and neck no hemodynamically significant stenosis. Chest x-ray also unremarkable. Admission request was made for observations for presumed postictal state with postictal confusions. Review of Systems ROS unobtainable: due to mental status PFSH PFSH All Active Problems COVID (Acute) Post-ictal confusion (Acute) UTI (urinary tract infection) (Acute) Clonus (Acute) Gastroesophageal reflux disease (Chronic) Constipation (Chronic) Excessive salivation (Chronic) Medicare annual wellness visit, subsequent (Acute) Left hip pain (Acute) Fall (Acute) Arm pain, left (Acute) Contusion of arm, left (Acute) Elbow fracture, left (Acute) Closed fracture of head of left radius (Acute) Seizure disorder (Chronic) Hepatic disease (Chronic) Tremor (Chronic) Unspecified hypothyroidism (Chronic) Osteopenia (Chronic) Prolapsed bladder (Chronic) Chronic left hip pain (Chronic) History of tobacco use (Chronic) Vitamin B 12 deficiency (Chronic) Restless leg syndrome (Chronic) Peripheral neuropathy (Chronic) Osteoarthritis (Chronic) Kidney cyst, acquired (Chronic) Elevated blood pressure reading without diagnosis of hypertension (Chronic) Edema (Chronic) 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 Elevated blood pressure reading without diagnosis of hypertension Excessive salivation Gastroesophageal reflux disease Hepatic disease History of tobacco use Hypothyroidism (acquired) Hypoxia Insomnia Kidney cyst, acquired right kidney. Left hip pain Lipoma Nocturia Osteoarthritis mainly her knees. Osteoporosis Paroxysmal atrial flutter Peripheral neuropathy Pneumonia Prolapsed bladder Restless leg syndrome nocturnal cramping Seizure disorder Diagnosed in the seventh grade. Tremor Urinary incontinence in 2009 stated: has had for past 3 years and occasional sense of incomplete bladder emptying. Vitamin B 12 deficiency Surgical History H/O colonoscopy (~02/2004) colon polyp removed History of cataract surgery Bilateral History of cholecystectomy at age 27 History of nasal surgery 5 surgeries for nasal polyps History of sinus surgery multiple History of thumb surgery History of tonsillectomy and adenoidectomy History of tubal ligation Family History Mother , at age 66 from cancer Cancer Hypertension, essential Heart attack Migraines Diabetes Father , at age 42 from pneumonia Asthma Pneumonia Sister , from complications of DM Diabetes Cancer Daughter , at age 40 from metastatic cancer-unknown primary Cancer Sister , from cancer Malignant neoplasm of uterus Other Benign neoplasm of brain Colon cancer Malignant neoplasm of kidney Melanoma Social History household members: spouse and family housing: other details: lives downstairs in her daughter's home lives independently: Yes marital status: education level: middle school service: No occupational status: retired occupation: last worked at [employer] other: Children-10 eating out: rarely or never physical activity: none smoking status: Never smoker alcohol intake frequency: does not drink substance use type: does not use varsha/jain: Muslim seatbelt use: always MEDS/ALLERGIES Home Medications and Allergies Home Medications Medication Instructions Recorded Confirmed Type metoprolol tartrate 25 mg tablet 25 mg PO BID 05/04/18 12/28/21 History vitamin B complex PO 12/15/19 12/28/21 History ipratropium 0.5 mg-albuterol 3 mg 3 ml INHALATION BID #180 ml 09/19/20 12/28/21 Rx (2.5 mg base)/3 mL nebulization soln Miralax PO PRN 12/21/20 12/28/21 History phenytoin 50 mg chewable tablet 150 mg PO BID 90 Days #540 tab 05/24/21 12/28/21 Rx furosemide 20 mg tablet 20 mg PO QDAY 90 Days #90 tab 07/30/21 12/28/21 Rx levothyroxine 50 mcg tablet 50 mcg PO QDAY 90 Days #90 tab 07/30/21 12/28/21 Rx montelukast 10 mg tablet 10 mg PO QDAY 90 Days #90 tab 07/30/21 12/28/21 Rx Symbicort 160 mcg-4.5 2 puff INHALATION BID #10.2 g NS 09/12/21 12/28/21 Rx mcg/actuation HFA aerosol inhaler (budesonide-formoterol) glycopyrrolate 2 mg tablet 2 mg PO BID 90 Days #180 tab 10/02/21 12/28/21 Rx omeprazole 20 mg capsule,delayed 20 mg PO QAM #30 cap 12/28/21 12/28/21 Rx release Allergies Allergy/AdvReac Type Severity Reaction Status Date / Time aspirin Allergy Unknown Nausea, Verified 01/04/22 10:23 vomiting baclofen Allergy Unknown Unknown Verified 01/04/22 10:23 Cyclobenzaprine Allergy Unknown Unknown Verified 01/04/22 10:23 moxifloxacin Allergy Unknown Pain in Verified 01/04/22 10:23 arm and chest Nitrous Oxide Allergy Unknown Unknown Verified 01/04/22 10:23 Penicillins AdvReac Mild Rash Verified 01/04/22 10:23 EXAM Constitutional Vitals: Temp Pulse Resp BP Pulse Ox 36.6 C 59 L 16 134/87 98 01/10/22 09:00 01/10/22 12:25 01/10/22 09:00 01/10/22 12:01 01/10/22 12:25 General appearance: cooperative and no acute distress Exam: Lethargic and sleeping Head Head exam: Present atraumatic and normocephalic Eye Eye exam: Present EOMI and PERRL ENT ENT exam: Present mucous membranes moist, normal exam and normal external ear exam Neck Neck exam: Present normal inspection; Absent lymphadenopathy, tenderness or thyromegaly Respiratory Respiratory exam: Absent accessory muscle use, respiratory distress or wheezes Cardiovascular Cardiovascular exam: Present normal rate and rhythm; Absent JVD GI/Abdominal GI/Abdominal exam: Present normal bowel sounds and soft; Absent organomegaly or tenderness Extremities Exam Extremities exam: Present full ROM, normal capillary refill and normal inspection; Absent tenderness Neurological Exam Neurological exam: Present CN II-XII intact; Absent alert, motor sensory deficit or oriented X3 Additional comments: Lethargic and sleeping Psychiatric Psychiatric exam: Present normal affect and normal mood; Absent anxious or depressed Skin Skin exam: Present dry and intact DATA Data Completed and Pending Labs: Labs from last 24 hours 01/10/22 01/10/22 01/10/22 11:48 09:45 09:45 WBC RBC Hgb Hct MCV MCH MCHC RDW Plt Count MPV Neut % (Auto) Lymph % (Auto) [place] % (Auto) Eos % (Auto) Baso % (Auto) Lymph # (Auto) [place] # (Auto) Eos # (Auto) Baso # (Auto) Absolute Neutrophils POC PT 10.9 L PT POC INR 0.9 INR APTT Sodium Potassium Chloride Carbon Dioxide Anion Gap BUN Creatinine GFR Calculation Glucose Calcium Phosphorus Magnesium Total Bilirubin AST ALT Alkaline Phosphatase Troponin T Total Protein Albumin Globulin Albumin/Globulin Ratio TSH Urine Color Pending Urine Appearance Pending Urine pH Pending Ur Specific Mcd[place]ough Pending Urine Protein Pending Urine Glucose (UA) Pending Urine Ketones Pending Urine Occult Blood Pending Urine Nitrate Pending Urine Bilirubin Pending Urine Urobilinogen Pending Ur Leukocyte Esterase Pending Phenytoin Free Phenytoin POC Troponin I 0 L 01/10/22 01/10/22 01/10/22 09:43 09:43 09:43 WBC RBC Hgb Hct MCV MCH MCHC RDW Plt Count MPV Neut % (Auto) Lymph % (Auto) [place] % (Auto) Eos % (Auto) Baso % (Auto) Lymph # (Auto) [place] # (Auto) Eos # (Auto) Baso # (Auto) Absolute Neutrophils POC PT PT POC INR INR APTT Sodium Potassium Chloride Carbon Dioxide Anion Gap BUN Creatinine GFR Calculation Glucose Calcium Phosphorus 2.6 Magnesium 2.7 H Total Bilirubin AST ALT Alkaline Phosphatase Troponin T Total Protein Albumin Globulin Albumin/Globulin Ratio TSH 5.64 H Urine Color Urine Appearance Urine pH Ur Specific [place] Urine Protein Urine Glucose (UA) Urine Ketones Urine Occult Blood Urine Nitrate Urine Bilirubin Urine Urobilinogen Ur Leukocyte Esterase Phenytoin 19.3 Free Phenytoin Pending POC Troponin I 01/10/22 01/10/22 01/10/22 09:43 09:43 09:43 WBC RBC Hgb Hct MCV MCH MCHC RDW Plt Count MPV Neut % (Auto) Lymph % (Auto) [place] % (Auto) Eos % (Auto) Baso % (Auto) Lymph # (Auto) [place] # (Auto) Eos # (Auto) Baso # (Auto) Absolute Neutrophils POC PT PT POC INR INR APTT Sodium 142 Potassium 4.5 Chloride 106 Carbon Dioxide 30 Anion Gap 6.0 L BUN 17 Creatinine 0.8 GFR Calculation 67 Glucose 105 Calcium 9.0 Phosphorus Magnesium Total Bilirubin 0.3 AST 24 ALT 15 Alkaline Phosphatase 121 H Troponin T < 0.01 Total Protein 6.6 Albumin 3.7 Globulin 2.9 Albumin/Globulin Ratio 1.3 TSH Urine Color Urine Appearance Urine pH Ur Specific [place] Urine Protein Urine Glucose (UA) Urine Ketones Urine Occult Blood Urine Nitrate Urine Bilirubin Urine Urobilinogen Ur Leukocyte Esterase Phenytoin Free Phenytoin POC Troponin I Pending 01/10/22 01/10/22 09:43 09:43 WBC 9.4 RBC 4.10 Hgb 13.5 Hct 41.1 MCV 100.2 H MCH 32.9 MCHC 32.8 RDW 14.6 H Plt Count 268 MPV 10.2 Neut % (Auto) 42.7 Lymph % (Auto) 49.4 H [place] % (Auto) 7.6 Eos % (Auto) 0 Baso % (Auto) 0.3 Lymph # (Auto) 4.62 [place] # (Auto) 0.71 Eos # (Auto) 0 Baso # (Auto) 0.03 Absolute Neutrophils 3.99 POC PT PT 12.0 POC INR INR 0.8 L APTT 25.9 Sodium Potassium Chloride Carbon Dioxide Anion Gap BUN Creatinine GFR Calculation Glucose Calcium Phosphorus Magnesium Total Bilirubin AST ALT Alkaline Phosphatase Troponin T Total Protein Albumin Globulin Albumin/Globulin Ratio TSH Urine Color Urine Appearance Urine pH Ur Specific [place] Urine Protein Urine Glucose (UA) Urine Ketones Urine Occult Blood Urine Nitrate Urine Bilirubin Urine Urobilinogen Ur Leukocyte Esterase Phenytoin Free Phenytoin POC Troponin I A/P Assessment and plan (1) Seizure disorder: Status: Chronic Comment: Diagnosed in the seventh grade. (2) Post-ictal confusion: Status: Acute (3) Hypothyroidism (acquired): Status: Chronic (4) Congestive heart failure: Status: Resolved Qualifiers: Congestive heart failure chronicity: acute Congestive heart failure type: unspecified congestive heart failure type Qualified Code(s): I50.9 - Heart failure, unspecified (5) COVID: Status: Acute (6) Asthma: Status: Chronic Qualifiers: Asthma severity: moderate Asthma complication type: uncomplicated A sthma persistence: persistent Qualified Code(s): J45.40 - Moderate persistent asthma, uncomplicated Narrative A/P Narrative: Assessment and Plans: 1. Seizure with post ictal confusion: Observation med telemetry Seizure precautions Prolactin level Dilantin level Lactic acid level Continue Dilantin Ativan IV PRN seizure activities Swallowing evaluation by nurse before feeding patient 2. Recent CoVID positivity: Isolation: airborne and contact No CoVID specific treatment due to the fact that she is tolerating room air 3. h/o CHF: Continue Metoprolol tartrate Continue Lasix PO 4. Hypothyroidism: Continue thyroid replacement therapy 5. h/o Asthma: Continue bronchodilators from home regimen GI ppx: continue PO PPI from home regimen DVT ppx: Lovenox Code status: Full Prognosis: stable Disposition: Observation med telemetry Time Spent With Patient Time: Total time spent is greater than 50% in coordination of care (as documented) at patient's floor/unit and/or counseling patient: Total time spent with greater than 50% in coordination of care (as documented) at patient's floor/unit and/or counseling patient:: 50 - 70 minutes QUALITY Stroke Symptom Onset Unknown: No
[2022-01-10 13:11] LABS: Appearance,Urine Clear (Clear); Bilirubin,Urine Negative (Negative); Color,Urine Yellow; Culture Indicated,Urine No; Glucose,Urine (UA) Negative (Negative); Ketones,Urine Negative (Negative); Leukocyte Esterase,Urine Negative /uL (Negative); Nitrate,Urine Negative (Negative); PH,Urine 8.5 (5.0-9.0); Protein,Urine Negative (Negative); Specific Gravity,Urine 1.015 (1.000-1.035); Urine Blood Trace-intact ery/mcL (Negative); Urine RBC < 1 /hpf (0-3); Urine Squamous Epithelial Cell 0 /hpf (0-4); Urine WBC 1 /hpf (0-4); Urobilinogen,Urine Normal
[2022-01-10] MEDS ORDERED: ONDANSETRON 4 MG/2 ML VIAL IV PRN (15:08)
[2022-01-10] MEDS ORDERED: LORazepam 2 MG/ML VIAL IV PRN (15:08)
[2022-01-10] MEDS ORDERED: traZODone HCL 50 MG TABLET PO PRN (15:08)
[2022-01-10] MEDS ORDERED: hydrALAZINE 20 MG/ML VIAL IV PRN (15:08)
[2022-01-10] MEDS ORDERED: ACETAMINOPHEN 325 MG TABLET PO PRN (15:08)
[2022-01-10 16:40] LABS: Dilantin Test 18.8 ug/mL
[2022-01-10] MEDS: 0.9 % SODIUM CHLORIDE 10 ML SYRINGE IV SCH ×2 (18:42→20:37)
[2022-01-10] MEDS: DOCUSATE SODIUM 100 MG CAPSULE PO SCH (20:36)
[2022-01-10] MEDS: Budesonide-Formoterol [Symbicort] 160-4.5 mcg/act INH SCH (20:37)
[2022-01-10] MEDS: PHENYTOIN 50 MG TAB.CHEW PO SCH (20:37)
[2022-01-10] MEDS: METOPROLOL TARTRATE 25 MG TABLET PO SCH (20:37)
[2022-01-10] MEDS ORDERED: SENNOSIDES 1 TABLET PO SCH (21:00)
[2022-01-10] MEDS: IPRATROPIUM/ALBUTEROL 3 ML AMPUL.NEB NEB SCH (21:10)
[2022-01-11] MEDS: 0.9 % SODIUM CHLORIDE 10 ML SYRINGE IV SCH (04:51)
[2022-01-11 07:08] LABS: Basophils # (Auto) 0.03 K/mcL (0.00-0.30); Basophils % (Auto) 0.4 % (0.0-2.0); Eosinophils # (Auto) 0 K/mcL (0.00-0.70); Eosinophils % (Auto) 0 % (0.0-7.0); Hematocrit 38.7 % (34.1-44.9); Hemoglobin 12.5 g/dL (11.2-15.7); Lymphocytes # (Auto) 3.26 K/mcL (1.50-4.80); Lymphocytes % (Auto) 39.4 % (15.5-49.0); Mean Cell Volume 101.3 fL (80.0-100.0); Mean Corpuscular HGB Conc 32.3 g/dL (31.0-36.0); Mean Platelet Volume 10.4 fL (7.4-10.4); Monocytes % (Auto) 10.9 % (1.0-12.0); Neutrophils % (Auto) 49.3 % (38.0-78.0); Platelet Count 260 K/mcL (140-440); RBC 3.82 M/mcL (3.59-5.38); Red Cell Distribution Width 14.9 % (11.5-14.5); WBC 8.3 K/mcL (4.5-11.0)
[2022-01-11] MEDS: IPRATROPIUM/ALBUTEROL 3 ML AMPUL.NEB NEB SCH (07:31)
[2022-01-11 07:39] LABS: ALT/SGPT 17 U/L (<40); AST/SGOT 29 U/L (<32); Albumin/Globulin Ratio 1.2 (1.0-2.3); Alkaline Phosphatase 107 U/L (39-117); Bilirubin,Total 0.2 mg/dL (0.1-1.0); Blood Urea Nitrogen 17 mg/dL (8-23); Calcium 8.8 mg/dL (8.6-10.4); Carbon Dioxide 29 mmol/L (22-30); Chloride 107 mmol/L (96-108); Globulin 2.6 gm/dL (2.2-3.7); Glomerular Filtration Rate 67; Glucose 94 mg/dL (70-105)
--- NOTE | 2022-01-11 08:44 | Discharge Summary ---
Discharge Provider Provider IMPORTANT FOLLOW-UP INFORMATION FOR PCP: Patient information: Note initiated : 01/11/22 at 8:42 am Service Date, if different from initiated Date: [] Patient: Nidia Lopez 86 y/o F admitted on 01/10/22 for Stroke symptoms. Chief Complaint: [] Date of admission: 01/10/22 14:46 Discharge date: 01/11/22 Primary care physician: Sin Deleon PA-C Attending physician on admission: Grant Madrigal Consults: 01/10/22 Consult to Physician [CONS] Stat Comment: Consulting Provider: Grant Madrigal Reason For Exam: Physician to Consult Attending physician on discharge: Grant Madrigal COURSE Hospital Course Hospital course: History of present illness: Ms. Lopez is a 86 year old F history of seizure, asthma, CHF, recent CoVID pneumonia, hypothyroidism, presenting with 1 day history of jerking/tonic-clonic activities. She has a history of seizure and she has been taking Dilantin and she is taking it as instructed never missing a dose. She was also being tested for COVID-pneumonia a week ago and was being tested positive she is currently on room air. Earlier this morning she was noted by her to show jerking/tonic-clonic activities. She is to be collateral surrounding and when she was being questions she try to answer but she cannot say a word. The whole tonic-clonic jerking activities last for about an hour until she was given Ativan in the ER. Vital signs within normal limits and she is tolerating room air with oxygen saturation in the high 90s. Labs also largely unremarkable lack of leukocytosis with WBC of 10. CT of the head without contrast no acute intracranial pathologies. CTA head and neck no hemodynamically significant stenosis. Chest x-ray also unremarkable. Admission request was made for observations for presumed postictal state with postictal confusions. 01/11: No additional seizure episode overnight. No other major overnight events. Patient is feeling good this morning denies any confusions. She does not remember what happened yesterday prior to being sent from home to the ER. Patient's reached clinical stability. Patient discharged home with follow-up appointment with PCP in 2 weeks appointment made for her. All questions were answered prior to patient being physically discharged. Discharge diagnosis: seizure Time Spent with Patient Time attestation: Total time spent providing and/or coordinating discharge services: Time spent: Less than 30 minutes EXAM Constitutional Vitals: Temp Pulse Resp BP Pulse Ox 36.4 C 74 16 108/72 98 01/11/22 04:45 01/11/22 07:32 01/11/22 07:32 01/11/22 04:45 01/11/22 07:32 General appearance: cooperative and no acute distress Head Head exam: Present atraumatic and normocephalic Eye Eye exam: Present EOMI and PERRL ENT ENT exam: Present mucous membranes moist, normal exam and normal external ear exam Neck Neck exam: Present normal inspection; Absent lymphadenopathy, tenderness or thyromegaly Respiratory Respiratory exam: Absent accessory muscle use, respiratory distress or wheezes Cardiovascular Cardiovascular exam: Present normal rate and rhythm; Absent JVD GI/Abdominal GI/Abdominal exam: Present normal bowel sounds and soft; Absent organomegaly or tenderness Extremities Exam Extremities exam: Present full ROM, normal capillary refill and normal inspection; Absent tenderness Neurological Exam Neurological exam: Present alert, CN II-XII intact and oriented X3; Absent motor sensory deficit Psychiatric Psychiatric exam: Present normal affect and normal mood; Absent anxious or depressed Skin Skin exam: Present dry and intact Discharge Data Data Completed and Pending Labs on day of discharge: Labs from last 24 hours 01/11/22 01/11/22 01/10/22 05:31 05:31 15:23 WBC 8.3 RBC 3.82 Hgb 12.5 Hct 38.7 MCV 101.3 H MCH 32.7 MCHC 32.3 RDW 14.9 H Plt Count 260 MPV 10.4 Neut % (Auto) 49.3 Lymph % (Auto) 39.4 [place] % (Auto) 10.9 Eos % (Auto) 0 Baso % (Auto) 0.4 Lymph # (Auto) 3.26 [place] # (Auto) 0.90 Eos # (Auto) 0 Baso # (Auto) 0.03 Absolute Neutrophils 4.08 POC PT PT POC INR INR APTT VBG Lactic Acid Sodium 141 Potassium 4.7 Chloride 107 Carbon Dioxide 29 Anion Gap 5.0 L BUN 17 Creatinine 0.8 GFR Calculation 67 Glucose 94 Calcium 8.8 Phosphorus Magnesium Total Bilirubin 0.2 AST 29 ALT 17 Alkaline Phosphatase 107 Troponin T Total Protein 5.6 L Albumin 3.0 L Globulin 2.6 Albumin/Globulin Ratio 1.2 TSH Prolactin Urine Color Urine Appearance Urine pH Ur Specific Ethel Urine Protein Urine Glucose (UA) Urine Ketones Urine Occult Blood Urine Nitrate Urine Bilirubin Urine Urobilinogen Ur Leukocyte Esterase Urine RBC Urine WBC Ur Squamous Epith Cells Urine Bacteria Ur Culture Indicated? Phenytoin 18.8 Free Phenytoin POC Troponin I 01/10/22 01/10/22 01/10/22 15:23 15:23 11:48 WBC RBC Hgb Hct MCV MCH MCHC RDW Plt Count MPV Neut % (Auto) Lymph % (Auto) [place] % (Auto) Eos % (Auto) Baso % (Auto) Lymph # (Auto) [place] # (Auto) Eos # (Auto) Baso # (Auto) Absolute Neutrophils POC PT PT POC INR INR APTT VBG Lactic Acid 1.0 Sodium Potassium Chloride Carbon Dioxide Anion Gap BUN Creatinine GFR Calculation Glucose Calcium Phosphorus Magnesium Total Bilirubin AST ALT Alkaline Phosphatase Troponin T Total Protein Albumin Globulin Albumin/Globulin Ratio TSH Prolactin 14.0 Urine Color Yellow Urine Appearance Clear Urine pH 8.5 Ur Specific Ethel 1.015 Urine Protein Negative Urine Glucose (UA) Negative Urine Ketones Negative Urine Occult Blood Trace-intact A Urine Nitrate Negative Urine Bilirubin Negative Urine Urobilinogen Normal Ur Leukocyte Esterase Negative Urine RBC < 1 Urine WBC 1 Ur Squamous Epith Cells 0 Urine Bacteria None Ur Culture Indicated? No Phenytoin Free Phenytoin POC Troponin I 01/10/22 01/10/22 01/10/22 09:45 09:45 09:43 WBC RBC Hgb Hct MCV MCH MCHC RDW Plt Count MPV Neut % (Auto) Lymph % (Auto) [place] % (Auto) Eos % (Auto) Baso % (Auto) Lymph # (Auto) [place] # (Auto) Eos # (Auto) Baso # (Auto) Absolute Neutrophils POC PT 10.9 L PT POC INR 0.9 INR APTT VBG Lactic Acid Sodium Potassium Chloride Carbon Dioxide Anion Gap BUN Creatinine GFR Calculation Glucose Calcium Phosphorus 2.6 Magnesium 2.7 H Total Bilirubin AST ALT Alkaline Phosphatase Troponin T Total Protein Albumin Globulin Albumin/Globulin Ratio TSH 5.64 H Prolactin Urine Color Urine Appearance Urine pH Ur Specific Ethel Urine Protein Urine Glucose (UA) Urine Ketones Urine Occult Blood Urine Nitrate Urine Bilirubin Urine Urobilinogen Ur Leukocyte Esterase Urine RBC Urine WBC Ur Squamous Epith Cells Urine Bacteria Ur Culture Indicated? Phenytoin Free Phenytoin POC Troponin I 0 L 01/10/22 01/10/22 01/10/22 09:43 09:43 09:43 WBC RBC Hgb Hct MCV MCH MCHC RDW Plt Count MPV Neut % (Auto) Lymph % (Auto) [place] % (Auto) Eos % (Auto) Baso % (Auto) Lymph # (Auto) [place] # (Auto) Eos # (Auto) Baso # (Auto) Absolute Neutrophils POC PT PT POC INR INR APTT VBG Lactic Acid Sodium Potassium Chloride Carbon Dioxide Anion Gap BUN Creatinine GFR Calculation Glucose Calcium Phosphorus Magnesium Total Bilirubin AST ALT Alkaline Phosphatase Troponin T Total Protein Albumin Globulin Albumin/Globulin Ratio TSH Prolactin Urine Color Urine Appearance Urine pH Ur Specific [place]thel Urine Protein Urine Glucose (UA) Urine Ketones Urine Occult Blood Urine Nitrate Urine Bilirubin Urine Urobilinogen Ur Leukocyte Esterase Urine RBC Urine WBC Ur Squamous Epith Cells Urine Bacteria Ur Culture Indicated? Phenytoin 19.3 Free Phenytoin Pending POC Troponin I Pending 01/10/22 01/10/22 01/10/22 09:43 09:43 09:43 WBC RBC Hgb Hct MCV MCH MCHC RDW Plt Count MPV Neut % (Auto) Lymph % (Auto) [place] % (Auto) Eos % (Auto) Baso % (Auto) Lymph # (Auto) [place] # (Auto) Eos # (Auto) Baso # (Auto) Absolute Neutrophils POC PT PT 12.0 POC INR INR 0.8 L APTT 25.9 VBG Lactic Acid Sodium 142 Potassium 4.5 Chloride 106 Carbon Dioxide 30 Anion Gap 6.0 L BUN 17 Creatinine 0.8 GFR Calculation 67 Glucose 105 Calcium 9.0 Phosphorus Magnesium Total Bilirubin 0.3 AST 24 ALT 15 Alkaline Phosphatase 121 H Troponin T < 0.01 Total Protein 6.6 Albumin 3.7 Globulin 2.9 Albumin/Globulin Ratio 1.3 TSH Prolactin Urine Color Urine Appearance Urine pH Ur Specific [place]thel Urine Protein Urine Glucose (UA) Urine Ketones Urine Occult Blood Urine Nitrate Urine Bilirubin Urine Urobilinogen Ur Leukocyte Esterase Urine RBC Urine WBC Ur Squamous Epith Cells Urine Bacteria Ur Culture Indicated? Phenytoin Free Phenytoin POC Troponin I 01/10/22 09:43 WBC 9.4 RBC 4.10 Hgb 13.5 Hct 41.1 MCV 100.2 H MCH 32.9 MCHC 32.8 RDW 14.6 H Plt Count 268 MPV 10.2 Neut % (Auto) 42.7 Lymph % (Auto) 49.4 H [place] % (Auto) 7.6 Eos % (Auto) 0 Baso % (Auto) 0.3 Lymph # (Auto) 4.62 [place] # (Auto) 0.71 Eos # (Auto) 0 Baso # (Auto) 0.03 Absolute Neutrophils 3.99 POC PT PT POC INR INR APTT VBG Lactic Acid Sodium Potassium Chloride Carbon Dioxide Anion Gap BUN Creatinine GFR Calculation Glucose Calcium Phosphorus Magnesium Total Bilirubin AST ALT Alkaline Phosphatase Troponin T Total Protein Albumin Globulin Albumin/Globulin Ratio TSH Prolactin Urine Color Urine Appearance Urine pH Ur Specific [place]thel Urine Protein Urine Glucose (UA) Urine Ketones Urine Occult Blood Urine Nitrate Urine Bilirubin Urine Urobilinogen Ur Leukocyte Esterase Urine RBC Urine WBC Ur Squamous Epith Cells Urine Bacteria Ur Culture Indicated? Phenytoin Free Phenytoin POC Troponin I Discharge Plan Patient/Caregiver Discharge Instructions Activity: increase activity as tolerated Diet: Regular Diet Prescriptions: Continued ipratropium-albuterol 0.5 mg-3 mg(2.5 mg base)/3 mL solution for nebulization 3 ml INHALATION BID Qty: 180 2RF Rx Instructions: Take the Symbicort inhaler after the nebulizer treatment twice daily. phenytoin 50 mg tablet,chewable 150 mg PO BID 90 Days Qty: 540 3RF montelukast 10 mg tablet 10 mg PO QDAY 90 Days Qty: 90 1RF furosemide 20 mg tablet 20 mg PO QDAY 90 Days Qty: 90 1RF levothyroxine 50 mcg tablet 50 mcg PO QDAY 90 Days Qty: 90 1RF budesonide-formoterol [Symbicort] 160-4.5 mcg/actuation HFA aerosol inhaler 2 puff inhalation BID Qty: 10.2 5RF Rx Instructions: take in the AM and PM about 30 minutes after using the nebulizer glycopyrrolate 2 mg tablet 2 mg PO BID 90 Days Qty: 180 1RF Hold Instructions: no effective vitamin B complex tablet 1,000 mg PO DAILY 0RF omeprazole 20 mg capsule,delayed release(DR/EC) 20 mg PO QAM Qty: 30 1RF Rx Instructions: for the stomach metoprolol tartrate 25 MG tablet 25 mg PO BID 0RF Follow Up Plan Follow up with: Sin Deleon PA-C [Primary Care Provider] - Patient Disposition: Home, Self-Care Rehab Potential: Good I certify that the patient requires SNF services: No Overall status at discharge: patient is back to baseline Discharge Orders: Discharge Order (Routine); Ordered 01/11/22 Ordered By: Grant WHYTE VTE Deep Vein Thrombosis/Pulmonary Embolism Present on Admission: No
[2022-01-11] MEDS: METOPROLOL TARTRATE 25 MG TABLET PO SCH (08:46)
[2022-01-11] MEDS: DOCUSATE SODIUM 100 MG CAPSULE PO SCH (08:47)
[2022-01-11] MEDS: Budesonide-Formoterol [Symbicort] 160-4.5 mcg/act INH SCH (08:47)
[2022-01-11] MEDS: PHENYTOIN 50 MG TAB.CHEW PO SCH (08:53)
[2022-01-11] MEDS ORDERED: OMEPRAZOLE 20 MG CAPSULE PO SCH (09:00)
[2022-01-11] MEDS ORDERED: FUROSEMIDE 20 MG TABLET PO SCH (09:00)
[2022-01-11] MEDS ORDERED: LEVOTHYROXINE 50 MCG TABLET PO SCH (09:00)
[2022-01-11] MEDS ORDERED: MONTELUKAST 10 MG TABLET PO SCH (09:00)
[2022-01-11] MEDS ORDERED: ENOXAPARIN 40 MG/0.4 ML SYRINGE SQ SCH (09:00)
--- NOTE | 2022-01-14 07:39 | EKG ---
[facility] Test Date: 2022-01-10 Pat Name: Nidia Lopez Department: ED Room: Gender: Female Nitrating Acid Mixer: LR : 1935 Requested By: Jaskaran Keen Order Number: [id number] Reading MD: Gabriel Salter Measurements Intervals [place] Rate: 80 P: 65 [place]: 241 QRS: -54 QRSD: 110 T: 93 QT: 384 QTc: 443 Interpretive Statements Sinus rhythm Prolonged [place] interval Incomplete left bundle branch block Artifact Electronically Signed On 01-14-2022 7:38:58 PDT by Gabriel Salter /store/[email or web address]/[id number]
== END 2022-01-11 11:10 | disposition home or self-care (01) ==
LOC: ED 08:55 → MEDSUR 08:55
PROVIDERS: ADMIT Internal Medicine; ATTEND Internal Medicine

== ENCOUNTER 2022-05-23 09:27 | Observation (INO) ==
[2022-05-23] MEDS ORDERED: IOPAMIDOL 100 ML BOTTLE IV ONE (09:28)
--- NOTE | 2022-05-23 09:32 | Emergency Department Note ---
HPI General Chief complaint: Weakness Stated complaint: Numbness in legs Time Seen by Provider: 05/23/22 09:30 Source: patient Mode of arrival: wheelchair Limitations: no limitations History of Present Illness HPI Narrative: Narrative: Patient is an 86-year-old female with a complex past medical history who present s to the emergency department due to numbness and concern for potential stroke. The patient states that she has had numbness in both legs, but that it is worse on the left. She also endorses weakness in both left upper and lower extremities. She states that some of the weakness in her left upper extremity is due to pain. She states that she recently fell and hit her left ribs. She was seen and evaluated for this and was given medication. There was some report that maybe her symptoms were related to the medication, but patient's python web developer was concern for the possibility of stroke when she saw her this morning. We called and spoke to patient's daughter who states that her pain started y at 10 AM approximately. They state that initially it was just numbness, but then became weakness as well, and that was all on the left side. They deny any other concerns at this time. Related Data Home Medications Medication Instructions Recorded Confirmed metoprolol tartrate 25 mg tablet 25 mg PO BID 05/04/18 05/23/22 vitamin B complex 1,000 mg PO DAILY 12/15/19 05/23/22 Previous Rx's Medication Instructions Recorded ipratropium 0.5 mg-albuterol 3 mg 3 ml inhalation BID #180 mL 09/19/20 (2.5 mg base)/3 mL nebulization soln phenytoin 50 mg chewable tablet 150 mg PO BID 90 days #540 tabs 05/24/21 furosemide 20 mg tablet 20 mg PO QDAY 90 days #90 tabs 01/23/22 levothyroxine 50 mcg tablet 50 mcg PO QDAY 90 days #90 tabs 01/23/22 montelukast 10 mg tablet 10 mg PO QDAY 90 days #90 tabs 01/23/22 Symbicort 160 mcg-4.5 2 puff inhalation BID #10.2 grams 03/25/22 mcg/actuation HFA aerosol inhaler (budesonide-formoterol) omeprazole 20 mg capsule,delayed 20 mg PO QAM #90 caps 04/30/22 release glycopyrrolate 2 mg tablet 2 mg PO BID 90 days #180 tabs 05/03/22 etodolac 400 mg tablet 400 mg PO BID 14 days #28 tabs 05/21/22 Allergies Allergy/AdvReac Type Severity Reaction Status Date / Time aspirin Allergy Unknown Nausea, Verified 05/23/22 09:31 vomiting baclofen Allergy Confusion Verified 05/23/22 09:31 Cyclobenzaprine Allergy Vomiting Verified 05/23/22 09:31 moxifloxacin Allergy Vomiting Verified 05/23/22 09:31 Penicillins AdvReac Rash Verified 05/23/22 09:31 Review of Systems ROS ROS Narrative: Narrative: Constitutional: Denies fever or weakness Eyes: Denies eye pain or vision change ENT ED: Denies throat pain, hearing loss or rhinorrhea Cardiovascular: Reports chest pain (Left-sided ribs after fall); Denies dyspnea on exertion, orthopnea or edema Respiratory: Denies shortness of breath or cough Gastrointestinal: Denies abdominal pain, nausea, vomiting, diarrhea, constipation, hematochezia or melena Musculoskeletal: Denies back pain or myalgia Integumentary: Denies rash or lesions Neurological: Reports weakness, numbness and confusion; Denies headache, ab normal gait or dizziness Endocrine: Denies fatigue or polyuria Hematological/Lymphatic: Denies easy bleeding or easy bruising PFSH Narrative Patient History Narrative: Narrative: Medical/Surgical/Family History All Active Problems Weakness (Acute) Numbness (Acute) COPD (chronic obstructive pulmonary disease) (Acute) TIA (transient ischemic attack) (Acute) Ischemic stroke (Acute) Generalized weakness (Acute) Acute alteration in mental status (Acute) COVID (Acute) Post-ictal confusion (Acute) UTI (urinary tract infection) (Acute) Clonus (Acute) Gastroesophageal reflux disease (Chronic) Constipation (Chronic) Excessive salivation (Chronic) Medicare annual wellness visit, subsequent (Acute) Left hip pain (Acute) Fall (Acute) Arm pain, left (Acute) Contusion of arm, left (Acute) Elbow fracture, left (Acute) Closed fracture of head of left radius (Acute) Seizure disorder (Chronic) Hepatic disease (Chronic) Tremor (Chronic) Unspecified hypothyroidism (Chronic) Osteopenia (Chronic) Prolapsed bladder (Chronic) Chronic left hip pain (Chronic) History of tobacco use (Chronic) Vitamin B 12 deficiency (Chronic) Restless leg syndrome (Chronic) Peripheral neuropathy (Chronic) Osteoarthritis (Chronic) Kidney cyst, acquired (Chronic) Elevated blood pressure reading without diagnosis of hypertension (Chronic) Edema (Chronic) 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 Elevated blood pressure reading without diagnosis of hypertension Excessive salivation Gastroesophageal reflux disease Hepatic disease History of tobacco use Hypothyroidism (acquired) Hypoxia Insomnia Kidney cyst, acquired right kidney. Left hip pain Lipoma Nocturia Osteoarthritis mainly her knees. Osteoporosis Paroxysmal atrial flutter Peripheral neuropathy Pneumonia Prolapsed bladder Restless leg syndrome nocturnal cramping Seizure disorder Diagnosed in the seventh grade. Tremor Urinary incontinence in 2009 stated: has had for past 3 years and occasional sense of incomplete bladder emptying. Vitamin B 12 deficiency Surgical History H/O colonoscopy (~02/2004) colon polyp removed History of cataract surgery Bilateral History of cholecystectomy at age 27 History of nasal surgery 5 surgeries for nasal polyps History of sinus surgery multiple History of thumb surgery History of tonsillectomy and adenoidectomy History of tubal ligation Family History Mother , at age 66 from cancer Cancer Hypertension, essential Heart attack Migraines Diabetes Father , at age 42 from pneumonia Asthma Pneumonia Sister , from complications of DM Diabetes Cancer Daughter , at age 40 from metastatic cancer-unknown primary Cancer Sister , from cancer Malignant neoplasm of uterus Other Benign neoplasm of brain Colon cancer Malignant neoplasm of kidney Melanoma Social History Smoking Status: Never smoker Alcohol Intake Frequency: does not drink Substance Use: does not use Exam Narrative Narrative: Narrative: General Limitations: no limitations General appearance: Present alert and in no apparent distress; Absent anxious, appears intoxicated or sleepy Head Head: Present atraumatic and normocephalic Eye Eye: Present PERRL and EOMI; Absent scleral icterus or nystagmus ENT ENT: Present mucous membranes moist; Absent nasal congestion Neck Neck: Present full ROM; Absent tenderness Chest Chest: Present normal inspection, symmetric chest wall rise and tenderness (Left side) Respiratory Respiratory: Present normal lung sounds bilaterally; Absent respiratory distress or accessory muscle use Cardiovascular Cardiovascular: Present regular rate, normal rhythm and normal heart sounds Adbominal Abdominal: Present soft and normal bowel sounds; Absent distention or tenderness Extremities Extremities: Present normal inspection and full ROM; Absent tenderness Back Back: Present normal inspection and full ROM; Absent tenderness Neurological Neurological: Present alert, oriented X3, CN II-XII intact and motor sensory deficit (Drift in right upper and lower extremities as well as decreased sensation) Psychiatric Psychiatric: Present normal affect and normal mood Skin Skin: Present warm (WNL), dry and normal color Course Vital Signs Vital signs: Vital Signs Temperature 97.5 F 05/23/22 09:28 Pulse Rate 62 05/23/22 09:28 Respiratory Rate 16 05/23/22 09:28 Blood Pressure 131/81 05/23/22 09:28 Pulse Oximetry (%) 96 05/23/22 09:28 Oxygen Delivery Method 05/23/22 09:28 Temperature 97.5 F 05/23/22 09:28 Pulse Rate 59 L 05/23/22 12:53 Respiratory Rate 16 05/23/22 09:28 Blood Pressure 107/56 05/23/22 12:53 Pulse Oximetry (%) 98 05/23/22 12:53 Oxygen Delivery Method 05/23/22 09:[address] [facility] MDM Narrative Medical decision making narrative: Narrative: Patient is an 86-year-old female who presents to the emergency department due to weakness, numbness, and tingling. Patient's symptoms started just over 24 hours ago, so stroke alert was not called today. Due to concern for stroke I reached out to neurology, and they recommended inpatient work-up for stroke. CT head without contrast was unremarkable. CT angio head and neck are pending. Patient's labs at this time are reassuring so far. We will reach out to the hospitalist team for admission for completion of stroke work-up. I spoken to Dr. Madrigal who was agreed to see evaluate patient for admission. Lab Data Result diagrams: 05/23/22 10:01 Labs: Lab Results 05/23/22 05/23/22 05/23/22 Range/Units 10:01 10:01 10:05 WBC 8.6 (4.5-11.0) K/mcL RBC 3.58 L (3.59-5.38) M/mcL Hgb 12.4 (11.2-15.7) g/dL Hct 37.1 (34.1-44.9) % POC Hct 39.0 (36-48) MCV 103.6 H (80.0-100.0) fL MCH 34.6 H (26.0-34.0) pg MCHC 33.4 (31.0-36.0) g/dL RDW 14.6 H (11.5-14.5) % Plt Count 250 (140-440) K/mcL MPV 9.8 (8.8-12.5) fL Immature Gran % (Auto) 0.2 (0.0-0.5) % Neut % (Auto) 53.4 (38.0-78.0) % Lymph % (Auto) 36.3 (15.5-49.0) % Bonner % (Auto) 8.2 (1.0-12.0) % Eos % (Auto) 1.3 (0.0-7.0) % Baso % (Auto) 0.6 (0.0-2.0) % Lymph # (Auto) 3.13 (1.50-4.80) K/mcL Bonner # (Auto) 0.71 (0.10-0.90) K/mcL Eos # (Auto) 0.11 (0.00-0.70) K/mcL Baso # (Auto) 0.05 (0.00-0.30) K/mcL Immature Gran # 0.02 (0.00-0.05) K/mcl Absolute Neutrophils 4.61 (1.80-8.00) K/mcL PT 12.9 (11.9-14.5) sec INR 0.9 (0.9-1.1) APTT 27.4 (20.0-37.0) sec POC Sodium 141 (133-145) POC Potassium 3.9 (3.3-5.1) POC Chloride 102 (96-108) POC Total CO2 28.0 (22-30) POC BUN 22 H (6-20) POC Creatinine 1.1 (0.6-1.2) POC Glucose 112 H (70-105) POC WB Ioniz Calcium 1.13 L (1.16-1.32) EKG Data EKG #1: EKG attestation: Yes I reviewed and interpreted this EKG. EKG results narrative: Sinus bradycardia with a rate of 59, left axis deviation, AK of 292, QRS of 93, QTc of 420, T wave flattening in leads I, 2, 3, aVR, aVL, aVF, V5, and V6, and absence of ST elevation or depression. Discharge Plan Patient/Caregiver Discharge Instructions Pt seen by ARTIFICIAL PLASTIC EYE MAKER/PA only: No Clinical Impression: Weakness, Numbness Patient Disposition: Xfer As Inpt ([facility])
[2022-05-23 10:07] LABS: POC Calcium, Ionized 1.13 (1.16-1.32); POC Creatinine 1.1 (0.6-1.2); POC Potassium 3.9 (3.3-5.1)
--- NOTE | 2022-05-23 10:24 | Cat Scan Report ---
INDICATION: New left numbness, weakness, started 24 hrs ago COMPARISON: Previous brain CT scan dated 01/10/2022 TECHNIQUE: Axial noncontrast-enhanced images through the brain. Sagittally and coronally reformatted images. FINDINGS: Cerebral hemispheres:No acute intra-axial hemorrhage. There is cerebral atrophy with enlargement superficial subarachnoid spaces and ventricles. There is prominent white matter abnormality consistent with small vessel ischemic change in this 86-year-old patient. No acute or focal intra-axial abnormality. No localized mass effect. No midline shift. No interval change Brainstem and cerebellum:No intra-axial abnormality Extra-axial:No acute hemorrhage. No subdural or epidural hematoma. No subarachnoid hemorrhage. Basilar cisterns are normal Calvarial:No calvarial fracture. No lytic lesion Temporal bones are negative. No destructive lesions Soft tissue, orbits, sinuses:Previous ethmoidectomy and bilateral medial maxillary antrectomy. There is mild residual inflammatory disease with mucosal thickening. No acute abnormality. No bone destruction. No posttraumatic abnormality. No fracture IMPRESSION: 1. No acute intracranial abnormality. No interval change since 01/10/2022 2. Cerebral atrophy and extensive white matter abnormality 3. Previous sinus surgery. Residual or recurrent mucosal thickening. No acute abnormality The exam was performed using radiation dose optimization techniques including, but not limited to, automated exposure control, adjustment of the mA and/or kV according to patient size and use of iterative reconstruction technique. Interpreted and Authenticated by: Christopher Mckay 05/23/22
[2022-05-23 10:41] LABS: Basophils # (Auto) 0.05 K/mcL (0.00-0.30); Basophils % (Auto) 0.6 % (0.0-2.0); Eosinophils # (Auto) 0.11 K/mcL (0.00-0.70); Eosinophils % (Auto) 1.3 % (0.0-7.0); Hematocrit 37.1 % (34.1-44.9); Hemoglobin 12.4 g/dL (11.2-15.7); Lymphocytes # (Auto) 3.13 K/mcL (1.50-4.80); Lymphocytes % (Auto) 36.3 % (15.5-49.0); Mean Cell Volume 103.6 fL (80.0-100.0); Mean Corpuscular HGB Conc 33.4 g/dL (31.0-36.0); Mean Platelet Volume 9.8 fL (8.8-12.5); Monocytes # (Auto) 0.71 K/mcL (0.10-0.90); Monocytes % (Auto) 8.2 % (1.0-12.0); Neutrophils % (Auto) 53.4 % (38.0-78.0); Platelet Count 250 K/mcL (140-440); RBC 3.58 M/mcL (3.59-5.38); Red Cell Distribution Width 14.6 % (11.5-14.5); WBC 8.6 K/mcL (4.5-11.0)
--- NOTE | 2022-05-23 11:52 | Cat Scan Report ---
INDICATION: Concern for stroke, greater than 24 h COMPARISON: Previous brain CT scan and CTA dated 01/10/2022 TECHNIQUE: Axial images were obtained through the upper chest, neck, and head during arterial phase. MIP and CPR reformatted images. 60ml Isovue 370 injected intravenously. FINDINGS: AORTIC ARCH: Mild calcified atherosclerotic plaque. Origins of the left subclavian artery, left vertebral artery, left common carotid artery, innominate artery, right common carotid artery, right subclavian artery, right vertebral artery are negative. No origin stenosis. CAROTID ARTERIES:Right: Right common carotid artery is negative. No stenosis or occlusion. No significant calcified or noncalcified plaque at the origin of the right internal carotid artery. No significant stenosis or evidence for ulceration. Right internal carotid artery is otherwise negative. No stenosis or occlusion. No fibromuscular dysplasia or dissection. Left: Left common carotid artery is negative. No stenosis or occlusion No significant calcified or noncalcified plaque at the origin of left internal carotid artery. No significant stenosis. No evidence for ulceration. Left internal carotid artery is otherwise negative. There is no stenosis or occlusion. No dissection or evidence for fibromuscular dysplasia VERTEBRAL ARTERIES:Vertebral arteries are patent without stenosis or occlusion [place]:[Cavernous and supraclinoid internal carotid arteries are negative. No significant stenosis or occlusion. M1 segments of the middle cerebral arteries and A1 segments of the anterior cerebral arteries are negative. Intracranial vertebral arteries and basilar artery are negative. Posterior cerebral arteries and superior cerebellar arteries are negative] INTRACRANIAL CIRCULATION:No intracranial branch occlusion. No arteriovenous malformation or aneurysm No dural sinus occlusion UPPER CHEST:No pulmonary parenchymal mass or focal infiltrate. Superior mediastinum is negative There is a small left pleural effusion. NECK:No solid or cystic soft tissue mass. No pathologic lymphadenopathy. BRAIN:No acute intracranial hemorrhage. No focal attenuation abnormalities or pathologic contrast enhancement. IMPRESSION: 1. Negative CTA of the upper chest, neck, and brain 2. No significant internal carotid artery plaque. No stenosis 3. No intracranial branch occlusion 4. No significant interval change since 01/10/2022 5. Small left pleural effusion The exam was performed using radiation dose optimization techniques including, but not limited to, automated exposure control, adjustment of the mA and/or kV according to patient size and use of iterative reconstruction technique. Interpreted and Authenticated by: Christopher Mckay 05/23/22
--- NOTE | 2022-05-23 12:31 | Internal Med History&Physical ---
HPI History of Present Illness Patient information: Note initiated : 05/23/22 at 12:21 pm Service Date, if different from initiated Date: [] Patient: Nidia Lopez a 86 y/o F admitted on for Numbness in legs. Chief Complaint: [numbness and weakness of left arm and leg] Chief complaint: numbness and weakness of left arm and leg History of present illness: Ms. Lopez is a 86 year old F history of seizures, hypothyroidism, COPD, CHF, presenting with 1 day history of acute onset numbness and weakness of the left side. There was no prior similar episode. Yesterday morning she had acute onset of numbness of left arm. This morning she has acute onset of motor weakness of the left leg to the point that she cannot walk. Right now she have some residual numbness of the left arm but stated that the left leg weakness has spontaneously and completely resolved. Current NIH stroke scale 4. Vital signs within normal limits. Labs also within normal limits. CT head without contrast did not show any acute intracranial pathologies. CT angiogram of the head and neck did not show any hemodynamically significant stenosis. Admission request was called for further work-up for stroke/TIA as well as post stroke/TIA manag ement. Constitutional Constitutional: Absent chills, excessive sweating, fatigue, fever(s) or weakness EENT Eyes: Absent blurry vision, change in vision, loss of vision or other visual disturbances Ears: Absent decreased hearing or tinnitus Nose, mouth and throat: Absent abnormal hearing, dry mouth, headache(s), nasal congestion or sore throat Cardiovascular Cardiovascular: Absent chest pain, chest pain at rest, edema, irregular heart rhythm or palpatations Respiratory Respiratory: Absent cough, dyspnea or wheezing Gastrointestinal Gastrointestinal: Absent abdominal pain, constipation, diarrhea, nausea or vomiting Musculoskeletal Musculoskeletal: Absent back pain, deformity, limited range of motion, muscle cramps, muscle weakness or numbness Integumentary Integumentary: Absent lesions, rash or wounds Neurological Neurological: Present as per HPI, focal weakness and numbness; Absent headache(s) Psychiatric Psychiatric: Absent anxiety, depression or hallucinations PFSH PFSH All Active Problems COPD (chronic obstructive pulmonary disease) (Acute) TIA (transient ischemic attack) (Acute) Ischemic stroke (Acute) Generalized weakness (Acute) Acute alteration in mental status (Acute) COVID (Acute) Post-ictal confusion (Acute) UTI (urinary tract infection) (Acute) Clonus (Acute) Gastroesophageal reflux disease (Chronic) Constipation (Chronic) Excessive salivation (Chronic) Medicare annual wellness visit, subsequent (Acute) Left hip pain (Acute) Fall (Acute) Arm pain, left (Acute) Contusion of arm, left (Acute) Elbow fracture, left (Acute) Closed fracture of head of left radius (Acute) Seizure disorder (Chronic) Hepatic disease (Chronic) Tremor (Chronic) Unspecified hypothyroidism (Chronic) Osteopenia (Chronic) Prolapsed bladder (Chronic) Chronic left hip pain (Chronic) History of tobacco use (Chronic) Vitamin B 12 deficiency (Chronic) Restless leg syndrome (Chronic) Peripheral neuropathy (Chronic) Osteoarthritis (Chronic) Kidney cyst, acquired (Chronic) Elevated blood pressure reading without diagnosis of hypertension (Chronic) Edema (Chronic) 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 Elevated blood pressure reading without diagnosis of hypertension Excessive salivation Gastroesophageal reflux disease Hepatic disease History of tobacco use Hypothyroidism (acquired) Hypoxia Insomnia Kidney cyst, acquired right kidney. Left hip pain Lipoma Nocturia Osteoarthritis mainly her knees. Osteoporosis Paroxysmal atrial flutter Peripheral neuropathy Pneumonia Prolapsed bladder Restless leg syndrome nocturnal cramping Seizure disorder Diagnosed in the seventh grade. Tremor Urinary incontinence in 2009 stated: has had for past 3 years and occasional sense of incomplete bladder emptying. Vitamin B 12 deficiency Surgical History H/O colonoscopy (~02/2004) colon polyp removed History of cataract surgery Bilateral History of cholecystectomy at age 27 History of nasal surgery 5 surgeries for nasal polyps History of sinus surgery multiple History of thumb surgery History of tonsillectomy and adenoidectomy History of tubal ligation Family History Mother , at age 66 from cancer Cancer Hypertension, essential Heart attack Migraines Diabetes Father , at age 42 from pneumonia Asthma Pneumonia Sister , from complications of DM Diabetes Cancer Daughter , at age 40 from metastatic cancer-unknown primary Cancer Sister , from cancer Malignant neoplasm of uterus Other Benign neoplasm of brain Colon cancer Malignant neoplasm of kidney Melanoma Social History household members: spouse and family housing: other details: lives downstairs in her daughter's home lives independently: Yes marital status: education level: middle school service: No occupational status: retired occupation: last worked at [employer] other: Children-10 eating out: rarely or never physical activity: none smoking status: Never smoker alcohol intake frequency: does not drink substance use type: does not use varsha/hindu: Scientologist seatbelt use: always MEDS/ALLERGIES Home Medications and Allergies Home Medications Medication Instructions Recorded Confirmed Type metoprolol tartrate 25 mg tablet 25 mg PO BID 05/04/18 05/21/22 History vitamin B complex 1,000 mg PO DAILY 12/15/19 05/21/22 History ipratropium 0.5 mg-albuterol 3 mg 3 ml inhalation BID #180 mL 09/19/20 05/21/22 Rx (2.5 mg base)/3 mL nebulization soln phenytoin 50 mg chewable tablet 150 mg PO BID 90 days #540 tabs 05/24/21 05/21/22 Rx furosemide 20 mg tablet 20 mg PO QDAY 90 days #90 tabs 01/23/22 05/21/22 Rx levothyroxine 50 mcg tablet 50 mcg PO QDAY 90 days #90 tabs 01/23/22 05/21/22 Rx montelukast 10 mg tablet 10 mg PO QDAY 90 days #90 tabs 01/23/22 05/21/22 Rx Symbicort 160 mcg-4.5 2 puff inhalation BID #10.2 grams 03/25/22 05/21/22 Rx mcg/actuation HFA aerosol inhaler (budesonide-formoterol) omeprazole 20 mg capsule,delayed 20 mg PO QAM #90 caps 04/30/22 05/21/22 Rx release glycopyrrolate 2 mg tablet 2 mg PO BID 90 days #180 tabs 05/03/22 05/21/22 Rx etodolac 400 mg tablet 400 mg PO BID 14 days #28 tabs 05/21/22 05/21/22 Rx Allergies Allergy/AdvReac Type Severity Reaction Status Date / Time aspirin Allergy Unknown Nausea, Verified 05/23/22 09:31 vomiting baclofen Allergy Confusion Verified 05/23/22 09:31 Cyclobenzaprine Allergy Vomiting Verified 05/23/22 09:31 moxifloxacin Allergy Vomiting Verified 05/23/22 09:31 Penicillins AdvReac Rash Verified 05/23/22 09:31 EXAM Constitutional Vitals: Temp Pulse Resp BP Pulse Ox O2 Del Method 36.4 C 59 L 16 102/70 97 05/23/22 09:28 05/23/22 10:49 05/23/22 09:28 05/23/22 10:34 05/23/22 10:49 05/23/22 09:28 General appearance: cooperative and no acute distress Head Head exam: Present atraumatic and normocephalic Eye Eye exam: Present EOMI and PERRL ENT ENT exam: Present mucous membranes moist, normal exam and normal external ear exam Neck Neck exam: Present normal inspection; Absent lymphadenopathy, tenderness or thyromegaly Respiratory Respiratory exam: Present wheezes; Absent accessory muscle use or respiratory distress Cardiovascular Cardiovascular exam: Present normal rate and rhythm; Absent JVD GI/Abdominal GI/Abdominal exam: Present normal bowel sounds and soft; Absent organomegaly or tenderness Extremities Exam Extremities exam: Present full ROM, normal capillary refill and normal inspection; Absent tenderness Neurological Exam Neurological exam: Present alert, CN II-XII intact and oriented X3; Absent motor sensory deficit Additional comments: Motor strength 5/5 bilateral upper and lower extremities Light touch sensation decreased in left upper extremity to the level of shoulder Psychiatric Psychiatric exam: Present normal affect and normal mood; Absent anxious or depressed Skin Skin exam: Present dry and intact DATA Data Completed and Pending Labs: Labs from last 24 hours 05/23/22 05/23/22 05/23/22 10:05 10:01 10:01 WBC 8.6 RBC 3.58 L Hgb 12.4 Hct 37.1 POC Hct 39.0 MCV 103.6 H MCH 34.6 H MCHC 33.4 RDW 14.6 H Plt Count 250 MPV 9.8 Immature Gran % (Auto) 0.2 Neut % (Auto) 53.4 Lymph % (Auto) 36.3 [place] % (Auto) 8.2 Eos % (Auto) 1.3 Baso % (Auto) 0.6 Lymph # (Auto) 3.13 [place] # (Auto) 0.71 Eos # (Auto) 0.11 Baso # (Auto) 0.05 Immature Gran # 0.02 Absolute Neutrophils 4.61 PT Pending INR Pending APTT Pending POC Sodium 141 POC Potassium 3.9 POC Chloride 102 POC Total CO2 28.0 POC BUN 22 H POC Creatinine 1.1 POC Glucose 112 H POC WB Ioniz Calcium 1.13 L A/P Assessment and plan (1) Ischemic stroke: Status: Acute (2) TIA (transient ischemic attack): Status: Acute (3) Gastroesophageal reflux disease: Status: Chronic Qualifiers: Esophagitis presence: esophagitis presence not specified Qualified Code(s): K21.9 - Gastro-esophageal reflux disease without esophagitis (4) Seizure disorder: Status: Chronic Comment: Diagnosed in the seventh grade. (5) Hypothyroidism (acquired): Status: Chronic (6) Congestive heart failure: Status: Resolved Qualifiers: Congestive heart failure chronicity: acute Congestive heart failure type: unspecified congestive heart failure type Qualified Code(s): I50.9 - Heart failure, unspecified (7) COPD (chronic obstructive pulmonary disease): Status: Acute Narrative A/P Narrative: Assessment and Plans: 1. Transient ischemic attack DDx: acute ischemic stroke Observation PCU with telemetry MRI brain stroke protocol 2D echocardiogram HgA1c screening Lipid panel screening Patient is allergic to aspirin, will do Plavix instead Lipitor Neuro Check q2hr NIH stroke scale qSHIFT Physical therapy Occupational therapy 2. Hypothyroidism: Continue thyroid replacement therapy 3. COPD: Montelukast DuoNEB Symbicort 4. h/o Seizure: Phenytoin 5. h/o congestive heart failure: Lasix Metoprolol tartrate 6. GERD: Continue oral PPI from home regimen GI ppx: oral PPI DVT ppx: Lovenox Code status: Full Prognosis: guarded Disposition: observation PCU; PT OT Time Spent With Patient Time: Total time spent is greater than 50% in coordination of care (as documented) at patient's floor/unit and/or counseling patient: Total time spent with greater than 50% in coordination of care (as documented) at patient's floor/unit and/or counseling patient:: 50 - 70 minutes
[2022-05-23 12:42] LABS: INR 0.9 (0.9-1.1); Partial Thromboplastin Time 27.4 sec (20.0-37.0); Prothrombin Time 12.9 sec (11.9-14.5)
[2022-05-23] MEDS ORDERED: ONDANSETRON 4 MG/2 ML VIAL IV PRN (12:59)
[2022-05-23] MEDS ORDERED: ACETAMINOPHEN 325 MG TABLET PO PRN (12:59)
[2022-05-23] MEDS ORDERED: LACTULOSE 20 GM/30 ML ORAL.SOL PO PRN (12:59)
[2022-05-23] MEDS ORDERED: SENNOSIDES 1 TABLET PO PRN (12:59)
[2022-05-23] MEDS ORDERED: CLOPIDOGREL 300 MG TABLET PO ONE (12:59)
[2022-05-23] MEDS ORDERED: IPRATROPIUM/ALBUTEROL 3 ML AMPUL.NEB NEB PRN (12:59)
[2022-05-23] MEDS: 0.9 % SODIUM CHLORIDE 10 ML SYRINGE IV SCH ×2 (14:33→20:16)
[2022-05-23 14:36] LABS: Hemoglobin A1C 5.1 % Hgb (4.0-6.0)
--- NOTE | 2022-05-23 15:11 | Magnetic Resonance Report ---
INDICATION: stroke; TIA TECHNIQUE: Limited MRI for evaluation of acute stroke COMPARISON: Previous brain CT scan dated 05/23/2022. Previous CTA dated 05/23/2022 FINDINGS: There is no restricted diffusion. No acute infarction. There is cerebral atrophy. There is extensive white matter abnormality. No interval change since prior noncontrast enhanced CT scan. IMPRESSION: 1. No restricted diffusion. No acute infarction 2. Cerebral atrophy and white matter abnormality consistent with small vessel ischemic change Interpreted and Authenticated by: Christopher Mckay 05/23/22
[2022-05-23 15:58] LABS: Appearance,Urine CLEAR (Clear); Bilirubin,Urine Negative (Negative); Color,Urine STRAW; Culture Indicated,Urine No; Glucose,Urine (UA) Negative (Negative); Ketones,Urine Negative (Negative); Leukocyte Esterase,Urine Negative /uL (Negative); Nitrate,Urine Negative (Negative); Protein,Urine Negative (Negative); Specific Gravity,Urine 1.013 (1.000-1.035); Urine Blood Negative (Negative); Urobilinogen,Urine Negative
[2022-05-23] MEDS: ETODOLAC 400 MG TABLET PO SCH (16:44)
[2022-05-23] MEDS: PHENYTOIN 125 MG/5 ML ORAL.SUSP PO SCH (20:16)
[2022-05-23] MEDS: METOPROLOL TARTRATE 25 MG TABLET PO SCH (20:16)
[2022-05-23] MEDS: DOCUSATE SODIUM 100 MG CAPSULE PO SCH (20:16)
[2022-05-23] MEDS: Budesonide-Formoterol [Symbicort] 160-4.5 mcg Inhaler INH SCH (20:27)
[2022-05-23] MEDS: IPRATROPIUM/ALBUTEROL 3 ML AMPUL.NEB NEB SCH (20:50)
[2022-05-23] MEDS ORDERED: ATORVASTATIN 40 MG TABLET PO SCH (21:00)
[2022-05-24] MEDS: 0.9 % SODIUM CHLORIDE 10 ML SYRINGE IV SCH (05:41)
[2022-05-24 06:53] LABS: Basophils # (Auto) 0.05 K/mcL (0.00-0.30); Basophils % (Auto) 0.7 % (0.0-2.0); Eosinophils # (Auto) 0.11 K/mcL (0.00-0.70); Eosinophils % (Auto) 1.5 % (0.0-7.0); Hemoglobin 12.9 g/dL (11.2-15.7); Lymphocytes # (Auto) 2.85 K/mcL (1.50-4.80); Lymphocytes % (Auto) 37.6 % (15.5-49.0); Mean Cell Volume 103.2 fL (80.0-100.0); Mean Corpuscular HGB Conc 33.1 g/dL (31.0-36.0); Mean Platelet Volume 9.6 fL (8.8-12.5); Monocytes # (Auto) 0.86 K/mcL (0.10-0.90); Monocytes % (Auto) 11.3 % (1.0-12.0); Neutrophils % (Auto) 48.8 % (38.0-78.0); Platelet Count 270 K/mcL (140-440); RBC 3.78 M/mcL (3.59-5.38); Red Cell Distribution Width 14.8 % (11.5-14.5); WBC 7.6 K/mcL (4.5-11.0)
[2022-05-24 07:30] LABS: ALT/SGPT 13 U/L (<40); AST/SGOT 20 U/L (<32); Albumin 3.5 gm/dL (3.2-5.2); Albumin/Globulin Ratio 1.5 (1.0-2.3); Alkaline Phosphatase 121 U/L (39-117); Bilirubin,Total 0.3 mg/dL (0.1-1.0); Blood Urea Nitrogen 17 mg/dL (8-23); Calcium 8.9 mg/dL (8.6-10.4); Carbon Dioxide 26 mmol/L (22-30); Chloride 102 mmol/L (96-108); Globulin 2.4 gm/dL (2.2-3.7); Glomerular Filtration Rate 51; Glucose 90 mg/dL (70-105)
[2022-05-24] MEDS: ETODOLAC 400 MG TABLET PO SCH (08:56)
[2022-05-24] MEDS ORDERED: ENOXAPARIN 40 MG/0.4 ML SYRINGE SQ SCH (09:00)
[2022-05-24] MEDS ORDERED: LEVOTHYROXINE 50 MCG TABLET PO SCH (09:00)
[2022-05-24] MEDS ORDERED: FUROSEMIDE 20 MG TABLET PO SCH (09:00)
[2022-05-24] MEDS ORDERED: MONTELUKAST 10 MG TABLET PO SCH (09:00)
[2022-05-24] MEDS ORDERED: OMEPRAZOLE 20 MG CAPSULE PO SCH (09:00)
[2022-05-24] MEDS ORDERED: CLOPIDOGREL 75 MG TABLET PO SCH (09:00)
[2022-05-24] MEDS ORDERED: VITAMIN B COMPLEX 1 CAPSULE PO SCH (09:00)
--- NOTE | 2022-05-24 09:20 | EKG ---
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
[2022-05-24] MEDS: DOCUSATE SODIUM 100 MG CAPSULE PO SCH (09:46)
[2022-05-24] MEDS: Budesonide-Formoterol [Symbicort] 160-4.5 mcg Inhaler INH SCH (09:46)
[2022-05-24] MEDS: PHENYTOIN 125 MG/5 ML ORAL.SUSP PO SCH (09:46)
[2022-05-24] MEDS: METOPROLOL TARTRATE 25 MG TABLET PO SCH (10:03)
[2022-05-24] MEDS: IPRATROPIUM/ALBUTEROL 3 ML AMPUL.NEB NEB SCH (10:29)
--- NOTE | 2022-05-24 14:08 | Discharge Summary ---
Discharge Provider Provider IMPORTANT FOLLOW-UP INFORMATION FOR PCP: Patient information: Note initiated : 05/24/22 at 1:46 pm Service Date, if different from initiated Date: [] Patient: Nidia Lopez 86 y/o F admitted on 05/23/22 for Numbness in legs. Chief Complaint: [] Date of admission: 05/23/22 12:55 Discharge date: 05/24/22 Primary care physician: Sin Deleon PA-C Attending physician on admission: Grant Madrigal Consults: 05/23/22 Consult to Physician [CONS] Stat Comment: Consulting Provider: Grant Madrigal Reason For Exam: Physician to Consult Attending physician on discharge: Grant Madrigal COURSE Hospital Course Hospital course: Ms. Lopez is a 86 year old F history of seizures, hypothyroidism, COPD, CHF, pr esenting with 1 day history of acute onset numbness and weakness of the left side. There was no prior similar episode. Yesterday morning she had acute onset of numbness of left arm. This morning she has acute onset of motor weakness of the left leg to the point that she cannot walk. Right now she have some residual numbness of the left arm but stated that the left leg weakness has spontaneously and completely resolved. Current NIH stroke scale 4. Vital signs within normal limits. Labs also within normal limits. CT head without contrast did not show any acute intracranial pathologies. CT angiogram of the head and neck did not show any hemodynamically significant stenosis. Admission request was called for further work-up for stroke/TIA as well as post stroke/TIA management. 05/24: 2D echocardiogram no structural abnormalities. MRI of the brain no acute intracranial pathologies. Patient's symptoms eventually resolved. Physical Therapy Occupational Therapy evaluate the patient and both recommend home health therapy. Patient has reached clinical stability, decision made to discharge the patient home with home health physical therapy and Occupational Therapy. Lipitor and Plavix prescribed. 2 weeks PCP follow-up movement made for the patient. All questions were answered prior to patient being physically discharged. Discharge diagnosis: TIA Time Spent with Patient Time attestation: Total time spent providing and/or coordinating discharge services: Time spent: Less than 30 minutes EXAM Constitutional Vitals: Temp Pulse Resp BP Pulse Ox O2 Del Method O2 Flow Rate 36.9 C 74 16 100/77 98 0 05/24/22 11:22 05/24/22 11:22 05/24/22 12:00 05/24/22 12:00 05/24/22 11:22 05/24/22 11:22 05/24/22 11:22 General appearance: cooperative and no acute distress Head Head exam: Present atraumatic and normocephalic Eye Eye exam: Present EOMI and PERRL ENT ENT exam: Present mucous membranes moist, normal exam and normal external ear exam Neck Neck exam: Present normal inspection; Absent lymphadenopathy, tenderness or thyromegaly Respiratory Respiratory exam: Absent accessory muscle use, respiratory distress or wheezes Cardiovascular Cardiovascular exam: Present normal rate and rhythm; Absent JVD GI/Abdominal GI/Abdominal exam: Present normal bowel sounds and soft; Absent organomegaly or tenderness Extremities Exam Extremities exam: Present full ROM, normal capillary refill and normal inspection; Absent tenderness Neurological Exam Neurological exam: Present alert, CN II-XII intact and oriented X3; Absent motor sensory deficit Psychiatric Psychiatric exam: Present normal affect and normal mood; Absent anxious or depressed Skin Skin exam: Present dry and intact Discharge Data Data Completed and Pending Labs on day of discharge: Labs from last 24 hours 05/24/22 05/24/22 05/23/22 05:02 05:02 15:23 WBC 7.6 RBC 3.78 Hgb 12.9 Hct 39.0 MCV 103.2 H MCH 34.1 H MCHC 33.1 RDW 14.8 H Plt Count 270 MPV 9.6 Immature Gran % (Auto) 0.1 Neut % (Auto) 48.8 Lymph % (Auto) 37.6 [place] % (Auto) 11.3 Eos % (Auto) 1.5 Baso % (Auto) 0.7 Lymph # (Auto) 2.85 [place] # (Auto) 0.86 Eos # (Auto) 0.11 Baso # (Auto) 0.05 Immature Gran # 0.01 Absolute Neutrophils 3.70 Sodium 138 Potassium 4.4 Chloride 102 Carbon Dioxide 26 Anion Gap 10.0 BUN 17 Creatinine 1.0 GFR Calculation 51 Glucose 90 Hemoglobin A1c Estim Average Glucose Calcium 8.9 Total Bilirubin 0.3 AST 20 ALT 13 Alkaline Phosphatase 121 H Total Protein 5.9 Albumin 3.5 Globulin 2.4 Albumin/Globulin Ratio 1.5 Urine Color Straw Urine Appearance Clear Urine pH 8.0 Ur Specific [place] 1.013 Urine Protein Negative Urine Glucose (UA) Negative Urine Ketones Negative Urine Occult Blood Negative Urine Nitrate Negative Urine Bilirubin Negative Urine Urobilinogen Negative Ur Leukocyte Esterase Negative Ur Culture Indicated? No 05/23/22 13:04 WBC RBC Hgb Hct MCV MCH MCHC RDW Plt Count MPV Immature Gran % (Auto) Neut % (Auto) Lymph % (Auto) [place] % (Auto) Eos % (Auto) Baso % (Auto) Lymph # (Auto) [place] # (Auto) Eos # (Auto) Baso # (Auto) Immature Gran # Absolute Neutrophils Sodium Potassium Chloride Carbon Dioxide Anion Gap BUN Creatinine GFR Calculation Glucose Hemoglobin A1c 5.1 Estim Average Glucose 100 Calcium Total Bilirubin AST ALT Alkaline Phosphatase Total Protein Albumin Globulin Albumin/Globulin Ratio Urine Color Urine Appearance Urine pH Ur Specific [place] Urine Protein Urine Glucose (UA) Urine Ketones Urine Occult Blood Urine Nitrate Urine Bilirubin Urine Urobilinogen Ur Leukocyte Esterase Ur Culture Indicated? Discharge Plan Patient/Caregiver Discharge Instructions Activity: increase activity as tolerated Diet: Regular Diet Instructions: Transient Ischemic Attack (GEN), Fall Prevention (GEN) Prescriptions: New atorvastatin 40 mg Tablet 40 mg PO HS 30 Days Qty: 30 0RF clopidogrel 75 mg Tablet 75 mg PO DAILY 21 Days Qty: 21 0RF Continued ipratropium-albuterol 0.5 mg-3 mg(2.5 mg base)/3 mL solution for nebulization 3 ml INHALATION BID Qty: 180 2RF Rx Instructions: Take the Symbicort inhaler after the nebulizer treatment twice daily. phenytoin 50 mg tablet,chewable 150 mg PO BID 90 Days Qty: 540 3RF furosemide 20 mg tablet 20 mg PO QDAY 90 Days Qty: 90 1RF montelukast 10 mg tablet 10 mg PO QDAY 90 Days Qty: 90 1RF levothyroxine 50 mcg tablet 50 mcg PO QDAY 90 Days Qty: 90 1RF budesonide-formoterol [Symbicort] 160-4.5 mcg/actuation HFA aerosol inhaler 2 puff inhalation BID Qty: 10.2 5RF Rx Instructions: take in the AM and PM about 30 minutes after using the nebulizer omeprazole 20 mg capsule,delayed release(DR/EC) 20 mg PO QAM Qty: 90 1RF Rx Instructions: for the stomach glycopyrrolate 2 mg tablet 2 mg PO BID 90 Days Qty: 180 1RF Hold Instructions: no effective vitamin B complex tablet 1,000 mg PO DAILY etodolac 400 mg tablet 400 mg PO BID 14 Days Qty: 28 0RF Rx Instructions: started on 05/22 take for 14 days. metoprolol tartrate 25 MG tablet 25 mg PO BID loratadine [Allergy Relief (loratadine)] 10 mg Tablet 10 mg PO QDAY Follow Up Plan Follow up with: Sin Deleon PA-C [Primary Care Provider] - 05/28/22 2:00 pm (Please check in at 1:45 pm) Patient Disposition: Home Health Service Rehab Potential: Good I certify that the patient requires SNF services: No Overall status at discharge: patient is back to baseline Discharge Orders: Discharge Order (Routine); Ordered 05/24/22 Ordered By: Grant WHYTE VTE Deep Vein Thrombosis/Pulmonary Embolism Present on Admission: No
== END 2022-05-24 14:58 | disposition home health service (06) ==
LOC: ICU 09:27 → ED 09:27 → ICU 13:27
PROVIDERS: ADMIT Internal Medicine; ATTEND Internal Medicine